=== PATIENT | female | born 1945 | race Caucasian/White ===

== ENCOUNTER 2021-02-18 03:08 | Emergency (ER) | payer MEDICARE, SELFPAY ==
[2021-02-18] VITALS (8 sets, daily range): BP systolic 128–160; BP diastolic 55–89; PULSE 83–104; RESP 16–25; TEMP 36.2; O2SAT 97–100
[2021-02-18 04:00] LABS: Basophils Percent Auto 0.2 % (0.2-1.2); Eosinophils Percent Auto 0.1 % (0-4.4); Hematocrit 31.9 % (37.0-47.0); Hemoglobin 8.1 g/dL (12.0-15.0); Immature Granulocyte Absolute 0.11 K/mm3 (0.00-0.031); Immature Granulocyte Percent A 0.6 % (0-0.5); Immature Platelet Fraction Pct 10.3 % (0.9-11.2); Lymphocytes Absolute Auto 0.98 K/mm3 (0.9-3.2); Lymphocytes Percent Auto 5.6 % (18.3-44.2); Mean Corpuscular HGB Conc 25.4 g/dl (32-36); Monocytes Absolute Auto 1.5 K/mm3 (0.1-0.6); Monocytes Percent Auto 8.3 % (2.6-8.5); Neutrophils Absolute Auto 14.9 K/mm3 (1.3-6.7); Neutrophils Percent Auto 85.2 % (45.5-73.1); Platelet Count Result 361 k/mm3 (150-375); Red Blood Count 5.06 M/mm3 (4.2-5.4); Red Cell Distribution Width 25.2 % (11.5-14.5); White Blood Count 17.5 K/mm3 (4.5-10.0)
[2021-02-18 04:09] LABS: Hypochromasia 1+ (NORMAL)
[2021-02-18 04:10] LABS: Platelet Estimate Adequate (Adequate)
[2021-02-18 04:11] LABS: Alanine Aminotransferase 17 U/L (4-35); Albumin Level 3.7 g/dL (3.5-5.1); Alkaline Phosphatase 79 U/L (38-126); Anion Gap 13 mmol/L (8-16); Aspartate Amino Transferase 32 U/L (14-36); Bilirubin,Total 0.6 mg/dL (0.2-1.3); Blood Urea Nitrogen 37 mg/dL (7-17); Calcium 7.4 mg/dL (8.4-10.2); Carbon Dioxide 21 mmol/L (22-30); Chloride 96 mmol/L (98-107); Estimated CRCL calculation 24 ml/min; Estimated Glomerular Filt Rate 28; Glucose 153 mg/dL (65-110); Lipase 172 U/L (23-300); Sodium 130 mmol/L (137-145)
--- NOTE | 2021-02-18 04:29 | ED.GENADULT ---
HPI - General Adult General Chief complaint: Unspecified Stated complaint: diarrhea Time Seen by Provider: 02/18/21 03:49 Source: RN notes reviewed History of Present Illness HPI narrative: Patient presents emergency department from home for multiple complaints. Patient states that today her left foot began to become cold and painful she states got to the point she could not walk on it and came in for further evaluation patient also states she is had diarrhea for the past 4 days states she is been having numerous episodes of loose stool she denies having fevers or chills, chest pain shortness of breath abdominal pain nausea vomiting or any other symptoms states that she is on any blood thinners. She states that she does have several family nerves at home who have been Covid positive approximately a week and a half ago she denies having any cough Related Data Allergies Allergy/AdvReac Type Severity Reaction Status Date / Time No Known Allergies Allergy Unverified 07/27/12 12:47 Review of Systems Review of Systems: Gen.: Denies fevers or chills ENT: Denies congestion Respiratory: Denies shortness of breath or cough CV: Denies chest pain or palpitations GI: Denies abdominal pain nausea, emesis reports diarrhea Musculoskeletal: Reports left foot pain Neuro: Denies numbness, tingling, weakness or focal weakness Skin: Denies rash Except as documented, all other systems reviewed and negative [facility] Past Medical History Medical History (Updated 02/18/21 @ 07:20 by Sanket Ocampo DO) COPD (chronic obstructive pulmonary disease) Social History Social History (Updated 02/18/21 @ 04:30 by Sanket Ocampo DO) Smoking status: Never smoker Exam Narrative: APPEARANCE: No acute distress, nontoxic, resting in bed EYES: EOMI HEENT: Normocephalic, atraumatic, OMM RESPIRATORY: No respiratory distress Clear to auscultation bilaterally with no rhonchi wheezing or rales. CARDIOVASCULAR: Regular rate and rhythm without murmurs rubs or gallops. ABDOMINAL: Soft, nontender, nondistended, no rebound or guarding MUSCULOSKELETAl: Moves all extremities. The left foot is pale and cool to the touch up to the mid tibia no dorsalis pedis pulse is able to be palpated and with Doppler unable to Doppler pulse dorsalis pedis or posterior tibialis NEURO: Awake and alert. Following commands, speech normal, no focal deficits SKIN:: Warm, dry. No rashes lesions or abrasions PSYCHIATRIC: Normal affect/mood, Course Course Emergency Course: Patient states she had been around some family members are diagnosed with Covid 2 weeks ago patient had rapid Covid swab negative in ED Discussed with patient need for transfer request [facility] this time Called discussed with [facility] no beds available [place] but beds are available at [facility]. Called discussed with Dr. Irene [facility] who accepts transfer the patient agrees with plan for starting heparin drip After transferring agreement at this time Vital Signs Vital signs: Vital Signs Temperature 97.1 F L 02/18/21 03:12 Pulse Rate 104 H 02/18/21 03:12 Respiratory Rate 16 02/18/21 03:12 Blood Pressure 128/65 02/18/21 03:12 Pulse Oximetry 99 02/18/21 03:12 Temperature 97.1 F L 02/18/21 03:12 Pulse Rate 89 02/18/21 07:14 Respiratory Rate 18 02/18/21 07:13 Blood Pressure 129/89 02/18/21 07:13 Pulse Oximetry 97 02/18/21 07:13 Medical Decision Making MDM Narrative Medical decision making narrative: Patient presents with a cool left foot unable to Doppler pulses in the dorsalis pedis or posterior tibialis. The patient has elevation of her creatinine and secondary is cannot receive contrast for CTA called and discussed with [facility] as we have no vascular surgery they will the patient at [facility] start on heparin with vascular surgery evaluation Vital Signs Vital Signs: Vital Signs Temperature 97.1 F L 02/18/21 03:12 Puls
[2021-02-18 04:35] LABS: Magnesium 1.5 mg/dL (1.6-2.3)
[2021-02-18 04:39] LABS: INR 1.1; Prothrombin Time 14.3 Seconds (11.1-14.7)
[2021-02-18] MEDS: MORPHINE SULFATE (*CRX) 2 MG/ML INJ IV PUSH ×3 (04:42→06:54)
--- NOTE | 2021-02-18 04:43 | PC.NURSE ---
pt still not able to urinate at this time.
[2021-02-18 04:49] LABS: EDCOVIDSCREEN Negative (Negative)
[2021-02-18] MEDS: HEPARIN SODIUM 5,000 UNITS/ML VIAL 6000 UNITS IV PUSH (04:56)
[2021-02-18] MEDS: MAGNESIUM SULF 2 GM/WATER 50ML 2 GM/50 ML BAG IVPB (04:56)
[2021-02-18 05:15] LABS: Lactic Acid Reflex 2.1 mmol/L (0.7-2.1)
[2021-02-18] MEDS: HEPARIN SOD/D5W 100 UNITS/ML 25,000 UNITS/250 ML BAG 12 UNITS IV CONT (05:15)
--- NOTE | 2021-02-18 05:37 | PC.NURSE ---
Called [facility] to transport patient to [facility] (direct admit)...ETA [phone]
--- NOTE | 2021-02-18 06:18 | PC.NURSE ---
pt still states she isnt able to urinate. notified.
--- NOTE | 2021-02-18 06:54 | PC.NURSE ---
0632: [facility] called with updated ETA...approximately 0800
[2021-02-18 07:04] LABS: Add Urine Microscopic? YES; Appearance Urine Cloudy (Clear); Bacteria Urine 4+ /hpf; Bilirubin Urine Negative (Negative); Blood Urine Negative (Negative); Color Urine Amber (Yellow); Glucose Urine UA Negative (Negative); Hyaline Casts Urine 50+ /lpf; Ketones Urine Negative (Negative); Leukocyte Esterase Ur 1+ LEU/UL (Negative); Mucus Urine Few /lpf; Nitrate Urine Negative (Negative); Protein Urine 1+ mg/dL (Negative); Specific Grav Ur 1.021 (1.001-1.035); Squamous Epithelial Cell Urine Moderate /hpf (Few); Urobilinogen Urine Negative mg/dL (<2.0); WBC Urine 21-30 /hpf
[2021-02-18 07:51] LABS: Reflex Lactic Acid Yes or No Add Lactic
--- NOTE | 2021-03-06 07:46 | PC.NURSE ---
LATE ENTRY This note is being entered to document information to the patient's record. The following information was omitted on [02/18/21], by [Millie Celaya]. IV fluids were infusing upon discharge to another facility.
--- NOTE | 2021-03-07 08:45 | PC.NURSE ---
LATE ENTRY This note is being entered to document information to the patient's record. The following information was omitted on [02/18/21], by [Millie Rao RN. Patient was transferred to [facility] with heparin drip continued. KCL stop time is 0842am. ].
== END 2021-02-18 08:17 | disposition short-term general hospital (02) ==
PROVIDERS: Emergency Provider Emergency Medicine
DX: I99.8 Other disorder of circulatory system (principal); N28.9 Disorder of kidney and ureter, unspecified; E87.6 Hypokalemia; R19.7 Diarrhea, unspecified; A41.9 Sepsis, unspecified organism; Z20.822 Contact with and (suspected) exposure to COVID-19; J44.9 Chronic obstructive pulmonary disease, unspecified; N39.0 Urinary tract infection, site not specified
CPT/HCPCS: 36415; 51701; 80053; 81001; 83605; 83690; 83735; 85025; 85055; 85610; 85730; 87040; 87077; 87086; 87088; 87186; 87426; 96365; 96366; 96367; 96368; 96375; 96376; 99285; C9803; J0696; J1644; J2270; J3475; J3480

== ENCOUNTER 2022-02-26 18:40 | Inpatient (IN) | payer OTHER, SELFPAY ==
[2022-02-26] VITALS (18 sets, daily range): BP systolic 103–149; BP diastolic 43–78; PULSE 94–101; RESP 13–19; TEMP 36.4–37.2; O2SAT 95–100
--- NOTE | ~2022-02-26 | CT_ITS ---
EXAMINATION: CT abdomen pelvis w con DATE: 02/26/2022 22:26 INDICATION: rule out gi bleed TECHNIQUE: Computed tomography (CT) of the abdomen and pelvis was performed with 100 mL Omnipaque-350 intravenous contrast. Automated exposure control and iterative reconstruction technique were employe d. The dose-length product was 1046.32 mGy-cm. COMPARISON: None. FINDINGS: Exam limited by motion and beam hardening artifact from arm position. Lower thorax: Peripheral and basilar interstitial lung disease. Bibasilar atelectasis. Aortic valve, coronary artery, and mitral calcifications. Cardiomegaly. Small pericardial effusion. Large hiatal he rnia. Liver: Enlarged. Biliary/Gallbladder: Gallbladder is normal. No bile duct dilation. Pancreas: No mass or duct dilation. Spleen: Normal. Adrenals:No mass. Kidneys: No mass, stone, or hydronephrosis. GI tract: Mild distal esophageal and gastric wall edema. No small bowel dilation. The rectum is dilat ed to 7.2 cm by formed stool. Normal appendix. Diverticulosis without diverticulitis. Mesentery/Peritoneum: No ascites, mass, or free air. Retroperitoneum: No mass. Very small fusiform abdominal aortic aneurysm. Atherosclerotic abdominal ao rtic and/or arterial calcifications. Pelvis: Bladder wall thickening and mild inflammation. Soft Tissues: Mild edema of the trunk. Bones: No acute osseous finding. IMPRESSION: Small pericardial effusion. Esophagitis/gastritis. Hepatomegaly. Fecal impaction. Possible cystitis. Reviewed, dictated and finalized at location K. IMPRESSION: Small pericardial effusion. Esophagitis/gastritis. Hepatomegaly. Fecal impactio n. Possible cystitis.
--- NOTE | ~2022-02-26 | XR_ITS ---
EXAMINATION: XR small bowel follow through DATE: 03/04/2022 14:00 INDICATION: Iron deficiency anemia. TECHNIQUE: Oral contrast was administered, and a time course of radiographs of the abdomen was obtain ed. Fluoroscopy of the small bowel was performed. Fluoroscopy exposure time was 0.1 minutes. The tota l number of images was 16. COMPARISON: CT abdomen and pelvis 02/26/2022 FINDINGS: There are no dilated loops of bowel. There is no abnormal mass or stricture. The terminal ileum is no rmal. Transit time from the stomach to proximal colon was approximately 5 hours. There is a moderate- sized sliding hiatal hernia. IMPRESSION: 1. No etiology for anemia. 2. Moderate-sized sliding hiatal hernia. Reviewed, dictated and finalized at location A.
--- NOTE | ~2022-02-26 | XR_ITS ---
EXAMINATION: XR chest 2V DATE: 02/27/2022 14:36 INDICATION: Congestive heart failure TECHNIQUE: AP and lateral views of the chest are obtained. COMPARISON: 12/20/2013 FINDINGS: Cardiomegaly is noted. There is a mild diffuse interstitial pattern. There are small pleura l effusions. There are minimal airspace opacities of the lung bases. No pneumothorax is identified. T here is mild thoracic spondylosis. IMPRESSION: 1. Cardiomegaly with mild pulmonary edema. 2. Small pleural effusions. 3. Minimal airspace opacities of the lung bases, likely atelectasis. Reviewed, dictated and finalized at location B.
--- NOTE | 2022-02-26 18:45 | ED.MEDCLEAR ---
HPI - Medical Clearance General Chief complaint: Recheck/Abnormal Lab/Rx Stated complaint: low H&H Time Seen by Provider: 02/26/22 18:45 Source: patient Mode of arrival: EMS Limitations: no limitations History of Present Illness HPI Narrative: The patient is a 76-year-old female presenting to the emergency department for evaluation of low hemoglobin and hematocrit found at outpatient laboratory testing. Patient states she was recently placed on a diuretic for bilateral lower extremity edema. Patient has been wrapping her legs with Rod bandages. 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 Patient states that she feels well. She denies any significant lightheadedness, dizziness, chest pain, shortness of breath, cough. She denies any significant fatigue, palpitations. Patient states that she was told that her hemoglobin levels were low and needed to come to the emergency department was transported via ambulance. Patient family is at bedside. States that she does appear pale to them. Patient does have a history of mild anemia. Does not have a history requiring blood transfusion. Related Information Allergies Allergy/AdvReac Type Severity Reaction Status Date / Time No Known Allergies Allergy Unverified 07/27/12 12:47 Review of Systems Review of Systems: CONSTITUTIONAL: Denies fever, chills, or sweats. EYES: Denies visual changes, redness, or discharge. ENT: Denies rhinorrhea, congestion, sore throat, or otalgia. CARDIOVASCULAR: Denies chest pain, palpitations, or edema. RESPIRATORY: Denies cough or dyspnea. GASTROINTESTINAL: Denies abdominal pain, nausea, vomiting, or diarrhea. GENITOURINARY: Denies dysuria or hematuria. SKIN: Denies rash or itching. MUSCULOSKELETAL: Denies back pain, joint pain, or myalgia. NEUROLOGIC: Denies headache, numbness, or weakness. P PMF Past Medical History Medical History (Updated 02/26/22 @ 21:37 by Sylvie Kennedy MD) Amputation of left lower extremity below knee Below knee amputation Chronic anticoagulation COPD (chronic obstructive pulmonary disease) Social History Social History Smoking status: Never smoker Exam Narrative: GENERAL: Awake, alert, conversant HEAD: Normocephalic, atraumatic. EYES: PERRLA and EOMI. ENT: Nares clear, no rhinorrhea or epistaxis. Mucous membranes dry NECK: Supple. CHEST: No respiratory distress, breathing even and non labored HEART: Tachycardic rate, sinus rhythm ABDOMEN:Non distended, non tender EXTREMITIES: Normal range of motion. Left BKA. Bilateral lower extremity pitting edema, 2+ pitting edema to the right lower leg, to the level of the knee. SKIN: Pale, warm, dry, no rash. NEURO:No focal deficits. Alert and oriented x3 Course Vital Signs Vital signs: Vital Signs Temperature 36.4 C 02/26/22 18:57 Pulse Rate 101 H 02/26/22 18:57 Respiratory Rate 18 02/26/22 18:57 Blood Pressure 149/61 H 02/26/22 18:57 Pulse Oximetry 96 02/26/22 18:57 Temperature 37.1 C 02/26/22 22:07 Pulse Rate 97 02/26/22 22:07 Respiratory Rate 19 02/26/22 22:07 Blood Pressure 106/43 L 02/26/22 22:07 Pulse Oximetry 100 02/26/22 22:07 MDM - Medical Clearance MDM Narrative Medical decision making narrative: Patient is a 76-year-old female presenting for evaluation of low hemoglobin levels found on outpatient evaluation. At the time of assessment, ABCs are intact and vital signs are stable. Patient is mildly tachycardic. Patient denies any other symptoms such as lightheadedness, dizziness, shortness of breath, fatigue. IV access obtained and labs are drawn. Type and screen was obtained. Patient significant anemia was verified. Hemoglobin levels of 3.0 and 2.8. Patient was ordered for IV blood transfusion. I perfor
--- NOTE | 2022-02-26 18:57 | ECG_ITS ---
Measurements Intervals [place] Rate: 102 P: 47 OK: 120 QRS: 35 QRSD: 97 T: 39 QT: 352 QTc: 459 Interpretive Statements SINUS TACHYCARDIA POSSIBLE LEFT ATRIAL ENLARGEMENT BASELINE ARTIFACT- I, II, AVR, AVL, AVF BORDERLINE ECG NO PREVIOUS ECG AVAILABLE FOR COMPARISON Electronically Signed On 02-26-2022 21:35:08 CDT by Luis F Rosas D.O.
[2022-02-26 19:36] LABS: INR 1.8
[2022-02-26 19:37] LABS: Partial Thromboplastin Time 40.5 SECONDS (22.3-36.8)
[2022-02-26 19:39] LABS: Basophils Percent Auto 0.4 % (0.2-1.2); Eosinophils Absolute Auto 0.1 K/mm3 (0-0.3); Eosinophils Percent Auto 1.6 % (0-4.4); Immature Granulocyte Absolute 0.03 K/mm3 (0.00-0.031); Immature Granulocyte Percent A 0.4 % (0-0.5); Lymphocytes Absolute Auto 1.93 K/mm3 (0.9-3.2); Lymphocytes Percent Auto 22.5 % (18.3-44.2); Mean Corpuscular HGB Conc 22.8 g/dl (32-36); Mean Corpuscular Hemoglobin 14.1 pg (26-34); Mean Corpuscular Volume 61.8 fl (80-100); Mean Platelet Volume 10.6 fl (7.4-10.4); Monocytes Absolute Auto 1.1 K/mm3 (0.1-0.6); Monocytes Percent Auto 13.3 % (2.6-8.5); Neutrophils Absolute Auto 5.3 K/mm3 (1.3-6.7); Neutrophils Percent Auto 61.8 % (45.5-73.1); Nucleated Red Blood Cells Absolute Auto 0.1 K/mm3 (0.0-0.012); Nucleated Red Blood Cells Perc 1.1 % (0.0-0.2); Platelet Count Result 737 k/mm3 (150-375); Red Cell Distribution Width 21.5 % (11.5-14.5); White Blood Count 8.6 K/mm3 (4.5-10.0)
[2022-02-26 19:44] LABS: Alanine Aminotransferase 17 U/L (6-35); Albumin Level 3.7 g/dL (3.5-5.1); Alkaline Phosphatase 125 U/L (38-126); Anion Gap 13 mmol/L (8-16); Aspartate Amino Transferase 23 U/L (14-36); Bilirubin,Total 0.7 mg/dL (0.2-1.3); Blood Urea Nitrogen 13 mg/dL (7-17); Carbon Dioxide 26 mmol/L (22-30); Chloride 96 mmol/L (98-107); Estimated CRCL calculation 54 ml/min; Estimated Glomerular Filt Rate > 60; Glucose 115 mg/dL (65-110); Lactate Dehydrogenase 169 U/L (120-246); Potassium 3.3 mmol/L (3.4-5.0); Sodium 135 mmol/L (137-145)
[2022-02-26 19:51] LABS: Hematocrit 13.6 % (37.0-47.0); Hemoglobin 3.1 g/dL (12.0-15.0)
[2022-02-26 19:52] LABS: Platelet Estimate Increased (Adequate)
[2022-02-26 19:53] LABS: Anisocytosis 3+ (NORMAL); Hypochromasia 3+ (NORMAL)
[2022-02-26 19:54] LABS: Iron 12 ug/dL (37-170)
[2022-02-26 20:03] LABS: Percent Iron Saturation 3 % (20-50)
[2022-02-26 20:18] LABS: Mean Corpuscular HGB Conc 22.8 g/dl (32-36); Mean Corpuscular Hemoglobin 14.2 pg (26-34); Mean Corpuscular Volume 62.4 fl (80-100); Mean Platelet Volume 10.1 fl (7.4-10.4); Platelet Count Result 627 k/mm3 (150-375); Red Blood Count 1.97 M/mm3 (4.2-5.4); Red Cell Distribution Width 21.3 % (11.5-14.5)
[2022-02-26 20:34] LABS: Hemoglobin 2.8 g/dL (12.0-15.0)
[2022-02-26 20:35] LABS: Hematocrit 12.3 % (37.0-47.0)
[2022-02-26 20:49] LABS: Anisocytosis 3+ (NORMAL); Band Neutrophils Percent 3 % (0-6); Eosinophils Absolute Manual 0.08 K/mm3 (0.02-0.5); Eosinophils Percent Manual 1 % (0-4); Giant Platelets Present; Large Platelets Present; Lymphocytes Absolute Manual 1.92 K/mm3 (1.1-4.5); Macrocytosis 2+ (NORMAL); Microcytosis 3+ (NORMAL); Monocytes Absolute Manual 0.64 K/mm3 (0.1-0.90); Monocytes Percent Manual 8 % (3-9); Neutrophils Absolute Manual 5.36 K/mm3 (1.7-7.2); Neutrophils Percent Manual 64 % (46-73); Platelet Estimate Increased (Adequate); Total Cells Counted 100
[2022-02-26 20:50] LABS: Acanthocytes 1+ (NORMAL); Hypersegmented Neutrophils Present; Hypochromasia 3+ (NORMAL); Ovalocytes 1+ (NORMAL); Stomatocytes 1+ (NORMAL); Target Cells 1+ (NORMAL)
[2022-02-26 20:51] LABS: Howell Jolly Bodies 2+ (NORMAL)
[2022-02-26 20:52] LABS: Poikilocytosis 1+ (NORMAL)
[2022-02-26] MEDS: SODIUM CHLORIDE 0.9% IV 250 ML 30 ML IV CONT (20:53)
[2022-02-26] MEDS: TUBING, BLOOD PLUM PUMP TUBING 1 EACH XX (20:54)
--- NOTE | 2022-02-26 20:58 | PM.IMHP ---
H&P: HPI History of Present Illness Date/Time: 02/26/22 20:58 Chief Complaint: 76 years old female with past medical history of chronic anticoagulation recurrent thrombosis status post COVID-19 status post left below-knee amputation for recurrent thrombosis history of COPD presented to the hospital with abnormal labs low hemoglobin patient was found to have hemoglobin around 3 repeat hemoglobin around2.8 patient denies black stool rectal exam did not show blood GI was consulted iron study haptoglobin was ordered patient denies chest pain or fever patient has lower extremity swelling was started on diuretics recently patient will be given blood transfusion will start IV Protonix GI and heme Onc will be consulted Patient has history hemorrhoids but denies black stool or blood in the stool or vomiting blood patient stated that she has blood test 1 week ago and she was told that no significant issues with her blood numbers Review of Systems Review of Systems: 12 system review negative except above PMFSH Past Medical History Medical History (Updated 02/26/22 @ 21:37 by Sylvie Kennedy MD) Amputation of left lower extremity below knee Below knee amputation Chronic anticoagulation COPD (chronic obstructive pulmonary disease) Social History Social History Smoking status: Never smoker Meds Home Medications and Allergies Allergies Allergy/AdvReac Type Severity Reaction Status Date / Time No Known Allergies Allergy Unverified 07/27/12 12:47 Vital Signs Vital Signs - 24 hr 02/26/22 18:57 02/26/22 20:51 Temperature 97.6 F 99.0 F Pulse Rate 101 H 98 Respiratory Rate 18 15 Blood Pressure 149/61 H 103/78 Pulse Oximetry 96 100 Exam Narrative: GENERAL: Well appearing, well-nourished, non-toxic, in no acute distress. HEAD: Normocephalic, atraumatic. NECK: Supple. No adenopathy, no masses. RESPIRATORY: Airway patent, respirations nonlabored. Clear to auscultation bilaterally, no rales, rhonchi, wheezing. CARDIOVASCULAR: Regular rate and rhythm without murmurs, rubs, or gallops. Peripheral pulses 2+ and equal bilaterally. ABDOMINAL: Soft, nontender, nondistended, no hepatosplenomegaly. Normoactive BS. MUSCULOSKELETAL: Moves all extremities. Strength/ROM intact without gross deformities or TTP. No edema. No calf tenderness. No chest wall tenderness palpation. SKIN: Warm, dry, normal color. No rashes. NEURO: A&O X3. moves all extremity. PSYCHIATRIC: Appropriate mood and affect. Normal interaction. H&P: Results Labs Labs: Short CBC 02/26/22 02/26/22 Range/Units 19:18 20:11 WBC 8.6 8.0 (4.5-10.0) K/mm3 Hgb 3.1 L* D 2.8 L* (12.0-15.0) g/dL Hct 13.6 L* 12.3 L* (37.0-47.0) % Plt Count 737 H D 627 H (150-375) k/mm3 BMP 02/26/22 19:17 Sodium 135 L Potassium 3.3 L Chloride 96 L Carbon Dioxide 26 BUN 13 D Creatinine 0.80 Glucose 115 H Calcium 9.0 Liver Function 02/26/22 Range/Units 19:17 Total Bilirubin 0.7 (0.2-1.3) mg/dL AST 23 (14-36) U/L ALT 17 (6-35) U/L Alkaline Phosphatase 125 (38-126) U/L Albumin 3.7 (3.5-5.1) g/dL Assessment and Plan Assessment and plan (1) Symptomatic anemia: Code(s): D64.9 - Anemia, unspecified Status: Acute Assessment and Plan: rule out acute blood loss anemia rule out hemolytic anemia Heme-Onc consult iron study occult blood folic acid B12 haptoglobin transfuse to keep hemoglobin above 7 discussed with ER provider CT scan of the abdomen pending (2) Blood clot in vein: Code(s): I82.90 - Acute embolism and thrombosis of unspecified vein Status: Acute Assessment and Plan: status post below-knee amputation (3) COPD (chronic obstructive pulmonary disease): Code(s): J44.9 - Chronic obstructive pulmonary disease, unspecified Status: Acute Assessment and Plan: stable continue
[2022-02-26 21:15] LABS: NT Pro B Type Natriuretic Pept 2490 pg/mL (5-100)
[2022-02-26 21:43] LABS: Ferritin 3.84 ng/mL (11.1-264)
[2022-02-26 22:01] LABS: Hematocrit 13.1 % (37.0-47.0)
[2022-02-26] MEDS: POTASSIUM CHLORIDE INJ 40 MEQ in SODIUM CHLORIDE 0.9% IV 500 ML 130 MEQ IVPB (22:28)
[2022-02-27] VITALS (36 sets, daily range): BP systolic 118–141; BP diastolic 46–102; PULSE 80–98; RESP 15–23; TEMP 36.6–37.2; O2SAT 94–100
[2022-02-27 00:20] LABS: Folic Acid 10.1 ng/mL (2.76->20)
--- NOTE | 2022-02-27 00:40 | ADMIMU ---
This patient, Shruthi Norris, was admitted to IMU status, and placed in Intensive Care Unit-8. Patient/family oriented to hospital policies and general routines including ID bracelet, bed and alarms, visiting hours, pain management, procedures, bathroom and other care routines, personal items, smoking policy, room service/diet, and visiting hours. Valuables list has been completed. Information on how to activate the Rapid Response Team has been discussed. Patient/Family are encouraged to report perceived risks to care and to ask questions if they do not understand what they are told or what they should do.
[2022-02-27 01:48] LABS: IFOB Positive Control Positive; Immunochemical Fecal Occult Bl Positive (N)
[2022-02-27] MEDS: IPRATROPIUM BR 0.02% INH SOLN 0.5 MG/2.5 ML VIAL INHALATION ×4 (02:32→21:41)
[2022-02-27 05:53] LABS: Basophils Absolute Auto 0.1 K/mm3 (0.0-0.1); Eosinophils Absolute Auto 0.1 K/mm3 (0-0.3); Eosinophils Percent Auto 1.9 % (0-4.4); Immature Granulocyte Absolute 0.03 K/mm3 (0.00-0.031); Immature Granulocyte Percent A 0.4 % (0-0.5); Lymphocytes Absolute Auto 1.01 K/mm3 (0.9-3.2); Lymphocytes Percent Auto 14.4 % (18.3-44.2); Mean Corpuscular HGB Conc 26.8 g/dl (32-36); Mean Corpuscular Hemoglobin 18.8 pg (26-34); Mean Platelet Volume 10.5 fl (7.4-10.4); Monocytes Absolute Auto 1.3 K/mm3 (0.1-0.6); Monocytes Percent Auto 17.9 % (2.6-8.5); Neutrophils Absolute Auto 4.5 K/mm3 (1.3-6.7); Neutrophils Percent Auto 64.4 % (45.5-73.1); Nucleated Red Blood Cells Absolute Auto 0.1 K/mm3 (0.0-0.012); Nucleated Red Blood Cells Perc 1.4 % (0.0-0.2); Platelet Count Result 558 k/mm3 (150-375); Red Blood Count 2.77 M/mm3 (4.2-5.4); Red Cell Distribution Width 24.6 % (11.5-14.5)
[2022-02-27 05:56] LABS: Alanine Aminotransferase 16 U/L (6-35); Albumin Level 3.1 g/dL (3.5-5.1); Alkaline Phosphatase 112 U/L (38-126); Anion Gap 8 mmol/L (8-16); Aspartate Amino Transferase 21 U/L (14-36); Bilirubin,Total 1.2 mg/dL (0.2-1.3); Blood Urea Nitrogen 11 mg/dL (7-17); Calcium 8.5 mg/dL (8.4-10.2); Carbon Dioxide 24 mmol/L (22-30); Chloride 100 mmol/L (98-107); Estimated CRCL calculation 62 ml/min; Estimated Glomerular Filt Rate > 60; Glucose 116 mg/dL (65-110); Potassium 3.9 mmol/L (3.4-5.0); Sodium 132 mmol/L (137-145)
[2022-02-27 05:58] LABS: Magnesium 1.9 mg/dL (1.6-2.3)
[2022-02-27 07:38] LABS: Hemoglobin 5.2 g/dL (12.0-15.0)
[2022-02-27 07:39] LABS: Hematocrit 19.4 % (37.0-47.0)
[2022-02-27 07:41] LABS: Anisocytosis 3+ (NORMAL); Hypochromasia 3+ (NORMAL); Microcytosis 2+ (NORMAL); Platelet Estimate Increased (Adequate)
--- NOTE | 2022-02-27 07:41 | PM.IMPN ---
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 Status: Acute Assessment and Plan: Holding Eliquis for now (3) Amputation of left lower extremity below knee: Code(s): S88.112A - Complete traumatic amputation at level between knee and ankle, left lower leg, initial encounter Status: Acute (4) COPD (chronic obstructive pulmonary disease): Code(s): J44.9 - Chronic obstructive pulmonary disease, unspecified Status: Acute Assessment and Plan: Stable (5) UTI (urinary tract infection): Code(s): N39.0 - Urinary tract infection, site not specified Status: Acute Assessment and Plan: Start on Rocephin, follow up urine culture (6) Chronic heart failure: Code(s): I50.9 - Heart failure, unspecified Status: Acute Assessment and Plan: Appears stable for now, monitor closely with large volume of transfusions being given, may need Lasix (7) Fecal impaction: Code(s): K56.41 - Fecal impaction Status: Acute Assessment and Plan: Give enema, hold off on further bowel regimen until hemoglobin stable Plan DVT prophylaxis with SCDs GI prophylaxis with PPI Code status full code Subjective Date/time seen: 02/27/22 07:41 Interval history: Patient sitting up in bed, resting comfortably. No complaints. No overnight events noted. No chest pain or shortness of breath. No nausea, vomiting or diarrhea. No fevers or chills. Review of Systems Review of Systems: 12 point review of systems was assessed and was negative except as noted in the HPI Objective Data Vital Signs Vital Signs: Vital Signs - 24 hr 02/26/22 18:57 02/26/22 20:51 02/26/22 21:07 Temperature 97.6 F 99.0 F 99.0 F Pulse Rate 101 H 98 94 Respiratory Rate 18 15 19 Blood Pressure 149/61 H 103/78 120/59 L Pulse Oximetry 96 100 99 Oxygen Delivery 02/26/22 20:45 02/26/22 20:46 02/26/22 21:02 Temperature Pulse Rate 99 100 96 Respiratory Rate 13 18 19 Blood Pressure 103/78 Pulse Oximetry 100 98 99 Oxygen Delivery 02/26/22 21:06 02/26/22 21:15 02/26/22 21:16 Temperature Pulse Rate 98 97 98 Respiratory Rate 19 19 19 Blood Pressure 120/59 L 120/56 L Pulse Oximetry 98 97 96 Oxygen Delivery 02/26/22 21:30 02/26/22 21:31 02/26/22 22:07 Temperature 98.8 F Pulse Rate 97 98 97 Respiratory Rate 16 19 19 Blood Pressure 118/48 L 106/43 L Pulse Oximetry 96 95 100 Oxygen Delivery 02/26/22 21:32 02/26/22 21:45 02/26/22 21:58 Temperature Pulse Rate 97 96 97 Respiratory Rate 18 17 18 Blood Pressure 106/64 Pulse Oximetry 96 97 96 Oxygen Delivery 02/26/22 22:00 02/26/22 22:01 02/26/22 22:27 Temperature Pulse Rate 95 97 94 Respiratory Rate 16 19 18 Blood Pressure 106/43 L 137/66 Pulse Oximetry 96 98 95 Oxygen Delivery 02/27/22 00:52 02/27/22 01:31 02/27/22 01:40 Temperature 98.6 F 98.6 F Pulse Rate 96 91 96 Respiratory Rate 15 20 17 Blood Pressure 131/79 141/65 H Pulse Oximetry 99 98 99 Oxygen Delivery Room Air 02/27/22 01:46 02/27/22 02:00 02/27/22 03:06 Temperature 98.8 F Pulse Rate 95 95 94 Respiratory Rate 20 23 H Blood Pressure 126/58 L Pulse Oximetry 97 96 Oxygen Delivery Room Air 02/27/22 02:46 02/27/22 02:32 02/27/22 02:42 Temperature 98.7 F Pulse Rate 94 98 90 Respiratory Rate 19 21 H 18 Blood Pressure 127/62 Pulse Oximetry 96 Oxygen Delivery 02/27/22 03:46 02/27/22 04:00 02/27/22 04:00 Temperature 98.7 F Pulse Rate 95 90 93 Respiratory Rate 19 Blood Pressure 138/102 H Pu
[2022-02-27 07:42] LABS: Ovalocytes 2+ (NORMAL); Target Cells 1+ (NORMAL); Tear Drop Cells 1+ (NORMAL)
[2022-02-27] MEDS: SODIUM CHLORIDE 0.9% IV 250 ML 30 ML IV CONT (07:55)
[2022-02-27] MEDS: oxyCODONE HCL (*CRX) 2.5 MG TAB IR PO ×2 (09:18→22:46)
[2022-02-27] MEDS: CALCIUM CARBONATE (TUMS) 500 MG (200 MG ELEMENTAL) 400 MG PO (09:18)
[2022-02-27] MEDS: PANTOPRAZOLE SODIUM IV 40 MG VIAL IV PUSH ×2 (09:18→17:41)
[2022-02-27] MEDS: THERAPEUTIC MULTIVITAMINS/MINERALS TAB (*BKC) 1 TABLET PO (09:19)
[2022-02-27] MEDS: ERGOCALCIFEROL 50,000 UNIT CAPSULE 50000 UNITS PO (09:19)
[2022-02-27] MEDS: FUROSEMIDE 20 MG TABLET PO (09:19)
--- NOTE | 2022-02-27 13:15 | WPDGICN ---
Assessment and Plan Assessment and plan (1) REED (iron deficiency anemia): Code(s): D50.9 - Iron deficiency anemia, unspecified Status: Acute Assessment and Plan: Patient appears to have a chronic anemia. she appears to have iron deficiency anemia. stool occult blood suggest that there is a potential GI source. Plan is for colonoscopy and EGD, but this should be deferred until her congestive heart failure is stabilized and her hemoglobin is improved she likely will need several transfusions. I would anticipate GI endoscopy early next week. (2) Occult blood in stools: Code(s): R19.5 - Other fecal abnormalities Status: Acute Assessment and Plan: No no active bleeding described but a stools found to be occult blood positive raising the question of GI source for anemia. (3) Acute exacerbation of CHF (congestive heart failure): Code(s): I50.9 - Heart failure, unspecified Status: Acute Assessment and Plan: Patient appears to have a high output congestive heart failure likely on the basis of her profound anemia. Hopefully this will improve with diuresis and correcting her anemia. 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 It was felt that she was hypercoagulable with her recent COVID infection. GI Consult Note Consult date/time: 02/27/22 13:15 Reason for consult: Microcytic anemia. HPI: Shruthi Norris is a 76 year old female I am asked to see because of anemia. Patient has a history of COVID in 2000. During this interval she developed clotting disorder. Then should really had clots in her left lower extremity which progressed to a left [id number] amputation. Patient subsequently was placed into a mcc. Because of DVT history she has been on chronic Eliquis anticoagulation. Patient has an underlying history of COPD, obesity, malleolar fracture. and tobacco use.. Patient reports that she began to develop pedal edema and swelling full with fluid retention. For this reason she presented to the emergency room last evening. She was noted to have a profound microcytic anemia and elevated BNP level. Subsequent iron studies are diminished. Patient denies any obvious bleeding. She has no nose bleeds. Previous laboratory testing reveals that in the past she had microcytic anemia but not to this degree. Review of Systems Review of Systems: Review of systems noncontributory. [facility] Past Medical History Medical History (Updated 02/27/22 @ 13:18 by Tristan Fernandez MD) Amputation of left lower extremity below knee Below knee amputation Chronic anticoagulation COPD (chronic obstructive pulmonary disease) Social History Social History Smoking status: Never smoker Alcohol intake: never Substance use: never Spiritual care concerns: No Meds Home Medications and Allergies Home Medications Medication Instructions Recorded Confirmed Type acetaminophen 500 mg tablet 500 mg PO Q8H PRN Pain 02/27/22 02/27/22 History apixaban 5 mg tablet (Eliquis) 5 mg PO BID 02/27/22 02/27/22 History aspirin 81 mg capsule,delayed 81 mg PO DAILY 02/27/22 02/27/22 History release calcium carbonate 200 mg calcium 400 mg PO DAILY 02/27/22 02/27/22 History (500 mg) chewable tablet (Vasquez-Gest Antacid) ergocalciferol (vitamin D2) 1,250 1,250 mcg PO WEEKLY 02/27/22 02/27/22 History mcg (50,000 unit) capsule fu
[2022-02-27 15:15] LABS: Hematocrit 26.8 % (37.0-47.0); Hemoglobin 8.3 g/dL (12.0-15.0)
[2022-02-27] MEDS: FUROSEMIDE INJ 40 MG/4 ML VIAL 20 MG IV PUSH (15:35)
--- NOTE | 2022-02-27 17:56 | PC.NURSE ---
This patient, Shruthi Norris, was transferred to [[id number]] on 02/27/22 at 1756. Personal belongings sent with patient. Report given to [Christofer ]. Appropriate documentation sent with patient.
--- NOTE | 2022-02-27 18:51 | PDONCCN ---
HPI - Date of Consult Date/Time: 02/27/22 18:51 Requesting Physician: Sylvie Kennedy MD Primary Care Provider: NUT TAPPER PHYSICIAN - Consult Narrative Reason for consult: Iron deficiency anemia Narrative: Shruthi Norris is a 76 year old female with the adverse still half-way resident had history of left BKA for recurrent thrombosis and peripheral vascular disease status post COVID infection came into the hospital when found to have hemoglobin of 3. Repeat labs done in the hospital showed hemoglobin of 2.8. Surprisingly she is not very symptomatic with tiredness and fatigue. She also denies any bleeding including melena hematochezia. Patient does have some swelling in the right lower extremity. CT abdomen and pelvis showed small pericardial effusion, esophagitis/gastritis and possible cystitis. After receiving 4 units of packed red blood cell her hemoglobin improved to 8.3. Review of Systems - Review of Systems All systems reviewed & are unremarkable except as noted in [facility] and [facility] Medical History: Medical History (Last Updated 02/26/22 @ 21:00 by Sylvie Kennedy MD) Amputation of left lower extremity below knee Below knee amputation Chronic anticoagulation COPD (chronic obstructive pulmonary disease) - Social History Social History: Social History (Last Reviewed 02/26/22 @ 20:59 by Sylvie Kennedy MD) Alcohol Use: Alcohol intake: never Substance Use: Substance use: never Others: Spiritual care concerns: No Smoking Status: Smoking status: Never smoker Exam - Vital Signs Vital Signs - 24 hr 02/26/22 18:57 02/26/22 20:51 02/26/22 21:07 Temperature 36.4 C 37.2 C 37.2 C Pulse Rate 101 H 98 94 Respiratory Rate 18 15 19 Blood Pressure 149/61 H 103/78 120/59 L Pulse Oximetry 96 100 99 Oxygen Delivery 02/26/22 20:45 02/26/22 20:46 02/26/22 21:02 Temperature Pulse Rate 99 100 96 Respiratory Rate 13 18 19 Blood Pressure 103/78 Pulse Oximetry 100 98 99 Oxygen Delivery 02/26/22 21:06 02/26/22 21:15 02/26/22 21:16 Temperature Pulse Rate 98 97 98 Respiratory Rate 19 19 19 Blood Pressure 120/59 L 120/56 L Pulse Oximetry 98 97 96 Oxygen Delivery 02/26/22 21:30 02/26/22 21:31 02/26/22 22:07 Temperature 37.1 C Pulse Rate 97 98 97 Respiratory Rate 16 19 19 Blood Pressure 118/48 L 106/43 L Pulse Oximetry 96 95 100 Oxygen Delivery 02/26/22 21:32 02/26/22 21:45 02/26/22 21:58 Temperature Pulse Rate 97 96 97 Respiratory Rate 18 17 18 Blood Pressure 106/64 Pulse Oximetry 96 97 96 Oxygen Delivery 02/26/22 22:00 02/26/22 22:01 02/26/22 22:27 Temperature Pulse Rate 95 97 94 Respiratory Rate 16 19 18 Blood Pressure 106/43 L 137/66 Pulse Oximetry 96 98 95 Oxygen Delivery 02/27/22 00:52 02/27/22 01:31 02/27/22 01:40 Temperature 37.0 C 37.0 C Pulse Rate 96 91 96 Respiratory Rate 15 20 17 Blood Pressure 131/79 141/65 H Pulse Oximetry 99 98 99 Oxygen Delivery Room Air 02/27/22 01:46 02/27/22 02:00 02/27/22 03:06 Temperature 37.1 C Pulse Rate 95 95 94 Respiratory Rate 20 23 H Blood Pressure 126/58 L Pulse Oximetry 97 96 Oxygen Delivery Room Air 02/27/22 02:46 02/27/22 02:32 02/27/22 02:42 Temperature 37.1 C Pulse Rate 94 98 90 Respiratory Rate 19 21 H 18 Blood Pressure 127/62 Pulse Oximetry 96 Oxygen Delivery 02/27/22 03:46 02/27/22 04:00 02/27/22 04:00 Temperature 37.1 C Pulse Rate 95 90 93 Respiratory Rate 19 Blood Pressure 138/102 H Pulse Oximetry 97 Oxygen Delivery 02/27/22 06:00 02/27/22 08:07 02/27/22 08:00 Temperature 36.9 C Pulse Rate 91 88 Respiratory Rate 22 H Blood Pressure 122/68 Pulse Oximetry 96 95 Oxygen Delivery Room Air 02/27/22 08:23 02/27/22 08:45 02/27/22 08:58 Temperature 37.2 C Pulse Rate 85 94 95 Respiratory Rate 15 20 18 Blood Pressure 123/62 Pulse Oximetry 10
[2022-02-27] MEDS: IRON SUCROSE COMPLEX 500 MG in SODIUM CHLORIDE 0.9% IV 250 ML 78.57 MG IVPB (22:36)
[2022-02-28] VITALS (15 sets, daily range): BP systolic 118–128; BP diastolic 66–73; PULSE 74–98; RESP 16–18; TEMP 36.3–36.6; O2SAT 92–95; BMI 31.7
--- NOTE | 2022-02-28 | ECHO_ITS ---
Patient Info Name: Shruthi Norris Age: 76 years : 1945 Gender: Female Ht: 66 in Wt: 196 lbs BSA: 2.06 m2 HR: 85 bpm BP: 127 / 73 mmHg Technical Quality: Fair Exam Date: 02/28/2022 11:51 AM Exam Location: [facility] [place] Patient Status: Inpatient Admit Date: 02/26/2022 Staff Ordering Physician: Carmelita Atwood DO Riffler Tender: Niharika Martinez RDCS Attending Provider: Sylvie Kennedy M.A., MD Referring Physician: Rai FRANCO; Exam Type: CA echo doppler color flow Study Info Indications R06.02 - Shortness of breath Complete two-dimensional, color flow and Doppler transthoracic echocardiogram is performed. Summary 1. Complete two-dimensional, color flow and Doppler transthoracic echocardiogram is performed. 2. Left ventricular chamber dimension is normal. 3. Left ventricular systolic function is normal, estimated at 55-60%. 4. The left ventricular diastolic function is grade I diastolic dysfunction. 5. E/e' 23 is elevated. 6. Global longitudinal strain is abnormal at -12.4%. 7. Left atrial chamber dimension is moderately enlarged. 8. There is mild aortic valve sclerosis. 9. The mitral valve has moderately calcified annulus. 10. There is mild mitral valve regurgitation. 11. Mild pulmonary hypertension, estimated pulmonary arterial systolic pressure is 42 mmHg. 12. There is small circumferential pericardial effusion. No pericardial effusion. Left Ventricle E/e' 23 is elevated. Global longitudinal strain is abnormal at -12.4%. Left ventricular chamber dimension is normal. Left ventricular systolic function is normal, estimated at 55-60%. The left ventricular diastolic function is grade I diastolic dysfunction. Right Ventricle Right ventricular chamber dimension is normal. Right ventricular systolic function is normal. Left Atria Left atrial chamber dimension is moderately enlarged. Right Atria Right atrial chamber dimension is normal. Aortic Valve The aortic valve is trileaflet. There is mild aortic valve sclerosis. There is no aortic valve stenosis. There is no aortic valve regurgitation. Pulmonic Valve There is no pulmonic regurgitation. Mitral Valve The mitral valve has moderately calcified annulus. There is no mitral valve stenosis. There is mild mitral valve regurgitation. Tricuspid Valve There is no tricuspid valve regurgitation. Mild pulmonary hypertension, estimated pulmonary arterial systolic pressure is 42 mmHg. Pericardium/Pleural There is small circumferential pericardial effusion. No pericardial effusion. Inferior Vena Cava Normal inferior vena cava with >50% collapse upon inspiration consistent with normal right atrial pressure, 5 mmHg. Aorta The aortic root size at the sinus of Valsalva is normal. Left Ventricular Outflow Tract Name Value Normal LVOT 2D LVOT Diameter 1.9 cm LVOT Doppler LVOT Peak Gradient 7 mmHg LVOT Mean Gradient 4 mmHg LVOT VTI 26 cm LVOT VTI/AV VTI Ratio 0.9 LVOT Stroke Volume
[2022-02-28 06:11] LABS: Basophils Percent Auto 0.5 % (0.2-1.2); Eosinophils Absolute Auto 0.6 K/mm3 (0-0.3); Hematocrit 29.7 % (37.0-47.0); Hemoglobin 8.5 g/dL (12.0-15.0); Immature Granulocyte Absolute 0.06 K/mm3 (0.00-0.031); Immature Granulocyte Percent A 0.8 % (0-0.5); Lymphocytes Absolute Auto 1.03 K/mm3 (0.9-3.2); Lymphocytes Percent Auto 14.1 % (18.3-44.2); Mean Corpuscular HGB Conc 28.6 g/dl (32-36); Mean Corpuscular Hemoglobin 21.6 pg (26-34); Mean Corpuscular Volume 75.6 fl (80-100); Mean Platelet Volume 10.3 fl (7.4-10.4); Monocytes Absolute Auto 1.1 K/mm3 (0.1-0.6); Monocytes Percent Auto 15.3 % (2.6-8.5); Neutrophils Absolute Auto 4.5 K/mm3 (1.3-6.7); Neutrophils Percent Auto 61.3 % (45.5-73.1); Nucleated Red Blood Cells Absolute Auto 0.1 K/mm3 (0.0-0.012); Nucleated Red Blood Cells Perc 1.5 % (0.0-0.2); Platelet Count Result 457 k/mm3 (150-375); Red Blood Count 3.93 M/mm3 (4.2-5.4); Red Cell Distribution Width 25.5 % (11.5-14.5); White Blood Count 7.3 K/mm3 (4.5-10.0)
[2022-02-28 06:22] LABS: Alanine Aminotransferase 15 U/L (6-35); Albumin Level 3.1 g/dL (3.5-5.1); Alkaline Phosphatase 99 U/L (38-126); Anion Gap 13 mmol/L (8-16); Aspartate Amino Transferase 19 U/L (14-36); Bilirubin,Total 0.7 mg/dL (0.2-1.3); Blood Urea Nitrogen 10 mg/dL (7-17); Calcium 7.9 mg/dL (8.4-10.2); Carbon Dioxide 25 mmol/L (22-30); Chloride 99 mmol/L (98-107); Estimated CRCL calculation 65 ml/min; Estimated Glomerular Filt Rate > 60; Glucose 101 mg/dL (65-110); Potassium 3.5 mmol/L (3.4-5.0); Sodium 137 mmol/L (137-145)
[2022-02-28 07:30] LABS: Platelet Estimate Increased (Adequate)
[2022-02-28 07:31] LABS: Anisocytosis 1+ (NORMAL); Hypochromasia 1+ (NORMAL); Macrocytosis 1+ (NORMAL); Poikilocytosis 1+ (NORMAL); Polychromasia 1+ (NORMAL)
[2022-02-28 07:32] LABS: Platelet Clumps Present
[2022-02-28] MEDS: TOLNAFTATE 1% POWDER 45 GM BTL 1 APPLIC TOPICAL ×2 (08:51→20:36)
[2022-02-28] MEDS: THERAPEUTIC MULTIVITAMINS/MINERALS TAB (*BKC) 1 TABLET PO (08:52)
[2022-02-28] MEDS: PANTOPRAZOLE SODIUM IV 40 MG VIAL IV PUSH ×2 (08:52→17:32)
[2022-02-28] MEDS: CALCIUM CARBONATE (TUMS) 500 MG (200 MG ELEMENTAL) 400 MG PO (08:52)
[2022-02-28] MEDS: FUROSEMIDE 20 MG TABLET PO (08:55)
[2022-02-28] MEDS: oxyCODONE HCL (*CRX) 2.5 MG TAB IR PO ×2 (09:01→20:36)
[2022-02-28] MEDS: polyethylene glycoL 3350 17 GM POWD.PACK PO (09:01)
--- NOTE | 2022-02-28 09:33 | PM.IMPN ---
Progress Note: A&P Assessment and Plan (1) GI bleed: Code(s): K92.2 - Gastrointestinal hemorrhage, unspecified Status: Acute Assessment and Plan: Fecal occult blood test positive, continue PPI, hgb stable after 4u pRBCs, monitor hemoglobin closely, gastritis and esophagitis noted on CT scan GI planning EGD/colonoscopy after HF and hgb stabilizes, likely on Thursday (2) Chronic anticoagulation: Code(s): Z79.01 - care home (current) use of anticoagulants Status: Acute Assessment and Plan: Holding Eliquis for now (3) Amputation of left lower extremity below knee: Code(s): S88.112A - Complete traumatic amputation at level between knee and ankle, left lower leg, initial encounter Status: Acute (4) COPD (chronic obstructive pulmonary disease): Code(s): J44.9 - Chronic obstructive pulmonary disease, unspecified Status: Acute Assessment and Plan: Stable (5) UTI (urinary tract infection): Code(s): N39.0 - Urinary tract infection, site not specified Status: Acute Assessment and Plan: Started on Rocephin in ER, follow up urine culture (6) Chronic heart failure: Code(s): I50.9 - Heart failure, unspecified Status: Acute Assessment and Plan: increase lasix IV, appears hypervolemic (7) Fecal impaction: Code(s): K56.41 - Fecal impaction Status: Acute Assessment and Plan: resolved Plan DVT prophylaxis with SCDs GI prophylaxis with PPI Code status full code Subjective Date/time seen: 02/28/22 09:33 Interval history: Patient sitting up in bed, watching TV, no complaints. No overnight events noted. No chest pain or shortness of breath. No nausea, vomiting or diarrhea. No fevers or chills. Review of Systems Review of Systems: 12 point review of systems was assessed and was negative except as noted in the HPI Exam Narrative: General: No acute distress, alert and oriented per baseline HEENT: Atraumatic, normocephalic, mucous membranes moist CV: Regular rate and rhythm, S1, S2 Lungs: Clear to auscultation bilaterally, no rales or crackles noted, no wheezes, good air entry Abdomen: Soft, nontender, nondistended Extremities: Normal to inspection Skin: No rashes noted, no lesions or wounds seen Psych: Euthymic, normal affect Objective Data Vital Signs Vital Signs: Vital Signs - 24 hr 02/27/22 10:23 02/27/22 10:00 02/27/22 11:00 Temperature 98.6 F 98.6 F Pulse Rate 93 90 85 Respiratory Rate 19 17 Blood Pressure 138/91 H 133/68 Pulse Oximetry 96 94 Oxygen Delivery 02/27/22 11:15 02/27/22 12:00 02/27/22 11:30 Temperature 98.6 F 98.9 F 98.6 F Pulse Rate 82 83 83 Respiratory Rate 20 16 17 Blood Pressure 133/78 130/63 136/64 Pulse Oximetry 95 97 95 Oxygen Delivery 02/27/22 12:30 02/27/22 12:00 02/27/22 12:00 Temperature 98.1 F Pulse Rate 83 80 Respiratory Rate 19 Blood Pressure 135/69 Pulse Oximetry 97 97 Oxygen Delivery Room Air 02/27/22 13:30 02/27/22 14:00 02/27/22 14:15 Temperature 98.1 F Pulse Rate 81 83 83 Respiratory Rate 18 20 Blood Pressure 118/87 Pulse Oximetry 98 Oxygen Delivery 02/27/22 14:26 02/27/22 14:26 02/27/22 16:00 Temperature Pulse Rate 85 88 Respiratory Rate 18 Blood Pressure Pulse Oximetry 96 Oxygen Delivery Room Air 02/27/22 16:00 02/27/22 18:46 02/27/22 20:00 Temperature 98.2 F 97.8 F Pulse Rate 93 91 Respiratory Rate 19 18 Blood Pressure 124/59 L 120/59 L Pulse Oximetry 97 98 Oxygen Delivery Room Air 02/27/22 21:42 02/27/22 21:44 02/27/22 22:44 Temperature 98.2 F Pulse Rate 88 90 Respiratory Rate 18 20 Blood Pressure 122/46 L Pulse Oximetry 95 98 Oxygen Delivery Room Air 02/27/22 20:00 02/28/22 02:45 02/27/22 21:54 Temperature Pulse Rate 89 76 87 Respiratory Rate 18 18 Blood Pressure Pulse Oximetry Oxygen Delivery 02/28/22 02:5
[2022-02-28] MEDS: IPRATROPIUM BR 0.02% INH SOLN 0.5 MG/2.5 ML VIAL INHALATION ×3 (09:53→20:07)
[2022-02-28] MEDS: FUROSEMIDE INJ 40 MG/4 ML VIAL IV PUSH ×2 (13:44→17:32)
--- NOTE | 2022-02-28 14:04 | WPDGIPROGNO ---
Progress Note: A&P Assessment and Plan (1) Occult blood in stools: Code(s): R19.5 - Other fecal abnormalities Status: Acute Assessment and Plan: she never had scopes no overt gib but noted occult blood in stools better after blood transfusion egd and colonoscopy by Dr Fernandez this Thursday (2) REED (iron deficiency anemia): Code(s): D50.9 - Iron deficiency anemia, unspecified Status: Acute Assessment and Plan: will need further investigation with egd and colonoscopy (3) Acute exacerbation of CHF (congestive heart failure): Code(s): I50.9 - Heart failure, unspecified Status: Acute Assessment and Plan: due to severe anemia (4) Abnormal CT scan, stomach: Code(s): R93.3 - Abnormal findings on diagnostic imaging of other parts of digestive tract Status: Acute Assessment and Plan: will assess with egd tolerating diet iv protonix for now (5) GI bleed: Code(s): K92.2 - Gastrointestinal hemorrhage, unspecified Status: Acute Assessment and Plan: iv protonix (6) Amputation of left lower extremity below knee: Code(s): S88.112A - Complete traumatic amputation at level between knee and ankle, left lower leg, initial encounter Status: Acute Subjective Date/time seen: 02/28/22 14:04 Interval history: doing well after blood transfusion, no abdominal pain, no n/v and tolerating diet. Denies obvious overt gib Review of Systems Review of Systems: All systems reviewed & are unremarkable except as noted in HPI and below Exam Const: General: comfortable and no acute distress HENMT: General nose exam: Normal nares present Eyes: General: appearance normal, both eyes and all related structures Neck: Neck: no JVD Resp: Auscultation: clear to auscultation bilaterally Cardio: Rate: regular rate Rhythm: regular rhythm GI: Inspection: non-distended GI Palp: Yes Soft to palpation, No Tenderness to palpation present (GI) and No Guarding due to palpation present (GI) Auscultation: normal bowel sounds Skin: General skin exam: normal color Neuro: Speech: normal speech Extrem: Other: left BKA Psych: Mental Status: mental status grossly normal Objective Data Vital Signs Vital Signs: Vital Signs - 24 hr 02/27/22 14:15 02/27/22 14:26 02/27/22 14:26 Temperature Pulse Rate 83 85 Respiratory Rate 20 18 Blood Pressure Pulse Oximetry 96 Oxygen Delivery Room Air 02/27/22 16:00 02/27/22 16:00 02/27/22 18:46 Temperature 98.2 F 97.8 F Pulse Rate 88 93 91 Respiratory Rate 19 18 Blood Pressure 124/59 L 120/59 L Pulse Oximetry 97 98 Oxygen Delivery 02/27/22 20:00 02/27/22 21:42 02/27/22 21:44 Temperature Pulse Rate 88 Respiratory Rate 18 Blood Pressure Pulse Oximetry 95 Oxygen Delivery Room Air Room Air 02/27/22 22:44 02/27/22 20:00 02/28/22 02:45 Temperature 98.2 F Pulse Rate 90 89 76 Respiratory Rate 20 18 Blood Pressure 122/46 L Pulse Oximetry 98 Oxygen Delivery 02/27/22 21:54 02/28/22 02:55 02/28/22 07:43 Temperature 97.4 F L Pulse Rate 87 74 84 Respiratory Rate 18 18 16 Blood Pressure 127/73 Pulse Oximetry 94 Oxygen Delivery 02/28/22 09:53 02/28/22 09:56 02/28/22 10:00 Temperature Pulse Rate 78 75 Respiratory Rate 18 18 Blood Pressure Pulse Oximetry 94 Oxygen Delivery Room Air 02/28/22 08:00 02/28/22 08:00 02/28/22 12:00 Temperature Pulse Rate 88 98 Respiratory Rate Blood Pressure Pulse Oximetry Oxygen Delivery Room Air Intake/Output Intake/Output: Intake & Output 02/25/22 02/26/22 02/27/22 02/28/22 23:59 23:59 23:59 23:59 Intake Total 0 1730 420 Balance 0 1730 420 Meds/Results Medications: Active Medications Generic Name Dose Route Start Last Admin Trade Name Freq PRN Reason Stop Dose Admin Acetaminophen 650 mg 02/26/22 20:50 Acetaminophen 325 Mg Tablet
[2022-02-28] MEDS: IRON SUCROSE COMPLEX 500 MG in SODIUM CHLORIDE 0.9% IV 250 ML 78.57 MG IVPB (17:32)
[2022-03-01] VITALS (15 sets, daily range): BP systolic 124–126; BP diastolic 48–60; PULSE 82–99; RESP 16–18; TEMP 36.6; O2SAT 90–93
[2022-03-01 00:49] LABS: Hematocrit 29.5 % (37.0-47.0); Hemoglobin 8.6 g/dL (12.0-15.0)
[2022-03-01 01:54] LABS: Basophils Percent Auto 0.5 % (0.2-1.2); Eosinophils Absolute Auto 0.9 K/mm3 (0-0.3); Eosinophils Percent Auto 12.1 % (0-4.4); Hematocrit 29.5 % (37.0-47.0); Hemoglobin 8.6 g/dL (12.0-15.0); Immature Granulocyte Absolute 0.07 K/mm3 (0.00-0.031); Immature Granulocyte Percent A 0.9 % (0-0.5); Immature Platelet Fraction Pct 5.9 % (0.9-11.2); Lymphocytes Absolute Auto 1.13 K/mm3 (0.9-3.2); Lymphocytes Percent Auto 15.1 % (18.3-44.2); Mean Corpuscular HGB Conc 29.2 g/dl (32-36); Mean Corpuscular Hemoglobin 22.5 pg (26-34); Mean Platelet Volume 10.6 fl (7.4-10.4); Monocytes Percent Auto 13.5 % (2.6-8.5); Neutrophils Absolute Auto 4.3 K/mm3 (1.3-6.7); Neutrophils Percent Auto 57.9 % (45.5-73.1); Nucleated Red Blood Cells Absolute Auto 0.2 K/mm3 (0.0-0.012); Platelet Count Result 466 k/mm3 (150-375); Red Blood Count 3.83 M/mm3 (4.2-5.4); Red Cell Distribution Width 26.7 % (11.5-14.5); White Blood Count 7.5 K/mm3 (4.5-10.0)
[2022-03-01 02:08] LABS: Alanine Aminotransferase 14 U/L (6-35); Albumin Level 2.9 g/dL (3.5-5.1); Alkaline Phosphatase 101 U/L (38-126); Anion Gap 9 mmol/L (8-16); Aspartate Amino Transferase 25 U/L (14-36); Bilirubin,Total 0.6 mg/dL (0.2-1.3); Blood Urea Nitrogen 9 mg/dL (7-17); Calcium 8.3 mg/dL (8.4-10.2); Carbon Dioxide 28 mmol/L (22-30); Chloride 98 mmol/L (98-107); Estimated CRCL calculation 68 ml/min; Estimated Glomerular Filt Rate > 60; Glucose 103 mg/dL (65-110); Potassium 3.4 mmol/L (3.4-5.0); Sodium 135 mmol/L (137-145)
[2022-03-01 02:10] LABS: Anisocytosis 3+ (NORMAL); Hypochromasia 2+ (NORMAL); Microcytosis 1+ (NORMAL); Platelet Estimate Increased (Adequate); Stomatocytes 2+ (NORMAL)
[2022-03-01] MEDS: IPRATROPIUM BR 0.02% INH SOLN 0.5 MG/2.5 ML VIAL INHALATION ×4 (02:43→20:15)
[2022-03-01] MEDS: THERAPEUTIC MULTIVITAMINS/MINERALS TAB (*BKC) 1 TABLET PO (08:06)
[2022-03-01] MEDS: PANTOPRAZOLE SODIUM IV 40 MG VIAL IV PUSH ×2 (08:06→17:30)
[2022-03-01] MEDS: FUROSEMIDE INJ 40 MG/4 ML VIAL IV PUSH ×2 (08:06→17:30)
[2022-03-01] MEDS: CALCIUM CARBONATE (TUMS) 500 MG (200 MG ELEMENTAL) 400 MG PO (08:06)
[2022-03-01] MEDS: polyethylene glycoL 3350 17 GM POWD.PACK PO (08:07)
[2022-03-01] MEDS: TOLNAFTATE 1% POWDER 45 GM BTL 1 APPLIC TOPICAL ×2 (08:07→21:34)
[2022-03-01] MEDS: oxyCODONE HCL (*CRX) 2.5 MG TAB IR PO ×2 (08:12→21:34)
--- NOTE | 2022-03-01 12:37 | WPDGIPROGNO ---
Progress Note: A&P Assessment and Plan (1) Occult blood in stools: Code(s): R19.5 - Other fecal abnormalities Status: Acute Assessment and Plan: she never had scopes she is doing well with adequate h/h response after blood transfusion no overt gib but noted occult blood in stools egd and colonoscopy by Dr Fernandez this Thursday (2) REED (iron deficiency anemia): Code(s): D50.9 - Iron deficiency anemia, unspecified Status: Acute Assessment and Plan: will need further investigation with egd and colonoscopy (3) Acute exacerbation of CHF (congestive heart failure): Code(s): I50.9 - Heart failure, unspecified Status: Acute Assessment and Plan: due to severe anemia, resolved (4) Abnormal CT scan, stomach: Code(s): R93.3 - Abnormal findings on diagnostic imaging of other parts of digestive tract Status: Acute Assessment and Plan: will assess with egd tolerating diet iv protonix for now (5) GI bleed: Code(s): K92.2 - Gastrointestinal hemorrhage, unspecified Status: Acute Assessment and Plan: iv protonix (6) Amputation of left lower extremity below knee: Code(s): S88.112A - Complete traumatic amputation at level between knee and ankle, left lower leg, initial encounter Status: Acute Subjective Date/time seen: 03/01/22 12:37 Interval history: doing well, eating, no new complain, less edema in her leg Review of Systems Review of Systems: All systems reviewed & are unremarkable except as noted in HPI and below Exam Const: General: comfortable and no acute distress HENMT: General nose exam: Normal nares present Eyes: General: appearance normal, both eyes and all related structures Neck: Neck: no JVD Resp: Auscultation: clear to auscultation bilaterally Cardio: Rate: regular rate Rhythm: regular rhythm GI: Inspection: non-distended GI Palp: Yes Soft to palpation, No Tenderness to palpation present (GI) and No Guarding due to palpation present (GI) Auscultation: normal bowel sounds Skin: General skin exam: normal color Neuro: Speech: normal speech Extrem: Other: left BKA Psych: Mental Status: mental status grossly normal Objective Data Vital Signs Vital Signs: Vital Signs - 24 hr 02/28/22 14:58 02/28/22 15:05 02/28/22 16:00 Temperature 97.6 F Pulse Rate 90 87 82 Respiratory Rate 18 18 16 Blood Pressure 128/70 Pulse Oximetry 95 Oxygen Delivery 02/28/22 16:00 02/28/22 20:09 02/28/22 20:09 Temperature Pulse Rate 92 94 Respiratory Rate 18 Blood Pressure Pulse Oximetry 92 Oxygen Delivery Room Air 02/28/22 20:49 02/28/22 20:00 02/28/22 20:00 Temperature 97.9 F Pulse Rate 92 92 Respiratory Rate 16 Blood Pressure 118/66 Pulse Oximetry 94 Oxygen Delivery Room Air 03/01/22 00:00 03/01/22 02:44 02/28/22 20:19 Temperature Pulse Rate 88 82 92 Respiratory Rate 18 18 Blood Pressure Pulse Oximetry Oxygen Delivery 03/01/22 04:00 03/01/22 08:29 03/01/22 08:38 Temperature Pulse Rate 86 87 90 Respiratory Rate 18 18 Blood Pressure Pulse Oximetry Oxygen Delivery 03/01/22 10:58 03/01/22 08:00 03/01/22 08:00 Temperature 97.9 F Pulse Rate 89 89 84 Respiratory Rate 16 16 Blood Pressure 126/60 Pulse Oximetry 90 90 Oxygen Delivery Room Air Intake/Output Intake/Output: Intake & Output 02/26/22 02/27/22 02/28/22 03/01/22 23:59 23:59 23:59 23:59 Intake Total 0 1730 1655 440 Output Total 650 Balance 0 1730 1005 440 Meds/Results Medications: Active Medications Generic Name Dose Route Start Last Admin Trade Name Freq PRN Reason Stop Dose Admin Acetaminophen 650 mg 02/26/22 20:50 Acetaminophen 325 Mg Tablet PO Q4H PRN Mild Pain (1-3) or Fever Acetaminophen 500 mg 02/27/22 07:45 Acetaminophen 500 Mg Tablet PO Q8H PRN Pain Albuterol 2.5 mg 02/26/22
--- NOTE | 2022-03-01 16:41 | PM.IMPN ---
Progress Note: A&P Assessment and Plan (1) GI bleed: Code(s): K92.2 - Gastrointestinal hemorrhage, unspecified Status: Acute Assessment and Plan: Fecal occult blood test positive, continue PPI, hgb stable after 4u pRBCs, monitor hemoglobin closely, gastritis and esophagitis noted on CT scan GI planning EGD/colonoscopy after HF and hgb stabilizes, likely on Thursday (2) Chronic anticoagulation: Code(s): Z79.01 - intermediate (current) use of anticoagulants Status: Acute Assessment and Plan: Holding Eliquis for now (3) Amputation of left lower extremity below knee: Code(s): S88.112A - Complete traumatic amputation at level between knee and ankle, left lower leg, initial encounter Status: Acute (4) COPD (chronic obstructive pulmonary disease): Code(s): J44.9 - Chronic obstructive pulmonary disease, unspecified Status: Acute Assessment and Plan: Stable (5) Chronic heart failure: Code(s): I50.9 - Heart failure, unspecified Status: Acute Assessment and Plan: Improved on increased lasix dose, will give one more day of diuresis, then switch back to po on Thursday (6) Fecal impaction: Code(s): K56.41 - Fecal impaction Status: Acute Assessment and Plan: resolved Plan DVT prophylaxis with SCDs GI prophylaxis with PPI Code status full code Subjective Date/time seen: 03/01/22 16:41 Exam Narrative: General: No acute distress, alert and oriented per baseline HEENT: Atraumatic, normocephalic, mucous membranes moist CV: Regular rate and rhythm, S1, S2 Lungs: Clear to auscultation bilaterally, no rales or crackles noted, no wheezes, good air entry Abdomen: Soft, nontender, nondistended Extremities: Normal to inspection, edema in LE much improved from yesterday Skin: No rashes noted, no lesions or wounds seen Psych: Euthymic, normal affect Objective Data Vital Signs Vital Signs: Vital Signs - 24 hr 02/28/22 20:09 02/28/22 20:09 02/28/22 20:49 Temperature 97.9 F Pulse Rate 94 92 Respiratory Rate 18 16 Blood Pressure 118/66 Pulse Oximetry 92 94 Oxygen Delivery Room Air 02/28/22 20:00 02/28/22 20:00 03/01/22 00:00 Temperature Pulse Rate 92 88 Respiratory Rate Blood Pressure Pulse Oximetry Oxygen Delivery Room Air 03/01/22 02:44 02/28/22 20:19 03/01/22 04:00 Temperature Pulse Rate 82 92 86 Respiratory Rate 18 18 Blood Pressure Pulse Oximetry Oxygen Delivery 03/01/22 08:29 03/01/22 08:38 03/01/22 10:58 Temperature 97.9 F Pulse Rate 87 90 89 Respiratory Rate 18 18 16 Blood Pressure 126/60 Pulse Oximetry 90 Oxygen Delivery 03/01/22 08:00 03/01/22 08:00 03/01/22 12:00 Temperature Pulse Rate 89 84 94 Respiratory Rate 16 Blood Pressure Pulse Oximetry 90 Oxygen Delivery Room Air 03/01/22 13:47 03/01/22 13:58 03/01/22 16:00 Temperature Pulse Rate 96 94 99 Respiratory Rate 18 18 Blood Pressure Pulse Oximetry Oxygen Delivery Intake/Output Intake/Output: Intake & Output 02/26/22 02/27/22 02/28/22 03/01/22 23:59 23:59 23:59 23:59 Intake Total 0 1730 1655 680 Output Total 650 Balance 0 1730 1005 680 Meds/Results Medications: Active Medications Generic Name Dose Route Start Last Admin Trade Name Freq PRN Reason Stop Dose Admin Acetaminophen 650 mg 02/26/22 20:50 Acetaminophen 325 Mg Tablet PO Q4H PRN Mild Pain (1-3) or Fever Acetaminophen 500 mg 02/27/22 07:45 Acetaminophen 500 Mg Tablet PO Q8H PRN Pain Albuterol 2.5 mg 02/26/22 23:06 Albuterol Sulfate Neb 2.5 Mg/3 Ml Inh INHALATION Q6HRT PRN Shortness Of Breath Calcium Carbonate 400 mg 02/27/22 09:00 03/01/22 08:06 Calcium Carbonate (Tums) 500 Mg (200 Mg Elemental) PO 400 mg DAILY TARA Administration Ergocalciferol 50,000 unit 02/27/22 09:00 02/27/22 09:19 Ergocalci
[2022-03-01 20:07] LABS: Appearance Urine Clear (Clear); Bilirubin Urine Negative (Negative); Color Urine Yellow (Yellow); Glucose Urine UA Negative (Negative); Ketones Urine Negative (Negative); Leukocyte Esterase Ur Trace LEU/UL (NEGATIVE); Nitrate Urine Negative (Negative); Protein Urine Negative (Negative); Specific Grav Ur 1.015 (1.001-1.035); Urobilinogen Urine 0.2 mg/dL (<2.0)
[2022-03-01 20:12] LABS: RBC Urine 0-2 /hpf (0-2); Squamous Epithelial Cell Urine Rare /hpf (Few); WBC Urine 0-3 /hpf (0-3)
[2022-03-01] MEDS: ALBUTEROL SULFATE NEB 2.5 MG/3 ML INH INHALATION (20:15)
[2022-03-01 20:18] LABS: Add Urine Microscopic? YES; Blood Urine Trace-Intact (Negative)
[2022-03-02] VITALS (16 sets, daily range): BP systolic 130–136; BP diastolic 59–63; PULSE 78–91; RESP 16–18; TEMP 36.6–36.7; O2SAT 93–95
[2022-03-02] MEDS: IPRATROPIUM BR 0.02% INH SOLN 0.5 MG/2.5 ML VIAL INHALATION ×4 (01:52→20:31)
--- NOTE | 2022-03-02 09:24 | WPDGIPROGNO ---
Progress Note: A&P Assessment and Plan (1) Occult blood in stools: Code(s): R19.5 - Other fecal abnormalities Status: Acute Assessment and Plan: she never had scopes no overt gib but noted occult blood in stools, h/h stable after blood transfusion egd and colonoscopy by Dr Fernandez tomorrow, will start bowel prep later today (2) REED (iron deficiency anemia): Code(s): D50.9 - Iron deficiency anemia, unspecified Status: Acute Assessment and Plan: will need further investigation with egd and colonoscopy (3) Acute exacerbation of CHF (congestive heart failure): Code(s): I50.9 - Heart failure, unspecified Status: Acute Assessment and Plan: due to severe anemia, resolved (4) Abnormal CT scan, stomach: Code(s): R93.3 - Abnormal findings on diagnostic imaging of other parts of digestive tract Status: Acute Assessment and Plan: will assess with egd tolerating diet iv protonix for now (5) GI bleed: Code(s): K92.2 - Gastrointestinal hemorrhage, unspecified Status: Acute Assessment and Plan: iv protonix (6) Amputation of left lower extremity below knee: Code(s): S88.112A - Complete traumatic amputation at level between knee and ankle, left lower leg, initial encounter Status: Acute Subjective Date/time seen: 03/02/22 09:24 Interval history: no new events, no signs of active gib Review of Systems Review of Systems: All systems reviewed & are unremarkable except as noted in HPI and below Exam Const: General: comfortable and no acute distress HENMT: General nose exam: Normal nares present Eyes: General: appearance normal, both eyes and all related structures Neck: Neck: no JVD Resp: Auscultation: clear to auscultation bilaterally Cardio: Rate: regular rate Rhythm: regular rhythm GI: Inspection: non-distended GI Palp: Yes Soft to palpation, No Tenderness to palpation present (GI) and No Guarding due to palpation present (GI) Auscultation: normal bowel sounds Skin: General skin exam: normal color Neuro: Speech: normal speech Extrem: Other: left BKA Psych: Mental Status: mental status grossly normal Objective Data Vital Signs Vital Signs: Vital Signs - 24 hr 03/01/22 10:58 03/01/22 12:00 03/01/22 13:47 Temperature 97.9 F Pulse Rate 89 94 96 Respiratory Rate 16 18 Blood Pressure 126/60 Pulse Oximetry 90 Oxygen Delivery 03/01/22 13:58 03/01/22 16:00 03/01/22 19:47 Temperature Pulse Rate 94 99 Respiratory Rate 18 Blood Pressure Pulse Oximetry Oxygen Delivery Room Air 03/01/22 20:10 03/01/22 20:10 03/01/22 20:18 Temperature Pulse Rate 91 91 95 Respiratory Rate 18 18 Blood Pressure Pulse Oximetry 93 Oxygen Delivery Room Air 03/01/22 21:58 03/01/22 20:00 03/02/22 00:00 Temperature 98 F Pulse Rate 97 92 86 Respiratory Rate 16 Blood Pressure 124/48 L Pulse Oximetry 92 Oxygen Delivery 03/02/22 01:45 03/02/22 01:54 03/02/22 04:00 Temperature Pulse Rate 87 90 84 Respiratory Rate 18 18 Blood Pressure Pulse Oximetry Oxygen Delivery 03/02/22 08:33 03/02/22 08:43 Temperature Pulse Rate 90 91 Respiratory Rate 18 18 Blood Pressure Pulse Oximetry Oxygen Delivery Intake/Output Intake/Output: Intake & Output 02/27/22 02/28/22 03/01/22 03/02/22 23:59 23:59 23:59 23:59 Intake Total 1730 1655 1120 100 Output Total 650 Balance 1730 1005 1120 100 Meds/Results Medications: Active Medications Generic Name Dose Route Start Last Admin Trade Name Freq PRN Reason Stop Dose Admin Acetaminophen 650 mg 02/26/22 20:50 Acetaminophen 325 Mg Tablet PO Q4H PRN Mild Pain (1-3) or Fever Acetaminophen 500 mg 02/27/22 07:45 Acetaminophen 500 Mg Tablet PO Q8H PRN Pain Albuterol 2.5 mg 02/26/22 23:06 03/01/22 20:15 Albuterol Sulfate Neb 2.5 Mg/3 Ml Inh
[2022-03-02] MEDS: CALCIUM CARBONATE (TUMS) 500 MG (200 MG ELEMENTAL) 400 MG PO (09:39)
[2022-03-02] MEDS: polyethylene glycoL 3350 17 GM POWD.PACK PO (09:39)
[2022-03-02] MEDS: TOLNAFTATE 1% POWDER 45 GM BTL 1 APPLIC TOPICAL ×2 (09:39→21:51)
[2022-03-02] MEDS: FUROSEMIDE INJ 40 MG/4 ML VIAL IV PUSH (09:39)
[2022-03-02] MEDS: oxyCODONE HCL (*CRX) 2.5 MG TAB IR PO ×2 (09:39→21:49)
[2022-03-02] MEDS: THERAPEUTIC MULTIVITAMINS/MINERALS TAB (*BKC) 1 TABLET PO (09:39)
[2022-03-02] MEDS: PANTOPRAZOLE SODIUM IV 40 MG VIAL IV PUSH ×2 (09:39→16:50)
--- NOTE | 2022-03-02 16:26 | PM.IMPN ---
Progress Note: A&P Assessment and Plan (1) GI bleed: Code(s): K92.2 - Gastrointestinal hemorrhage, unspecified Status: Acute Assessment and Plan: Fecal occult blood test positive, continue PPI, hgb stable after 4u pRBCs, monitor hemoglobin closely, gastritis and esophagitis noted on CT scan GI planning EGD/colonoscopy after HF and hgb stabilizes, likely on Thursday (2) Chronic anticoagulation: Code(s): Z79.01 - skilled nursing (current) use of anticoagulants Status: Acute Assessment and Plan: Holding Eliquis for now (3) Amputation of left lower extremity below knee: Code(s): S88.112A - Complete traumatic amputation at level between knee and ankle, left lower leg, initial encounter Status: Acute (4) COPD (chronic obstructive pulmonary disease): Code(s): J44.9 - Chronic obstructive pulmonary disease, unspecified Status: Acute Assessment and Plan: Stable (5) Chronic heart failure: Code(s): I50.9 - Heart failure, unspecified Status: Acute Assessment and Plan: Appears euvolemic now, we will discontinue IV diuresis and switch to p.o. (6) Fecal impaction: Code(s): K56.41 - Fecal impaction Status: Acute Assessment and Plan: resolved (7) Abnormal urinalysis: Code(s): R82.90 - Unspecified abnormal findings in urine Status: Acute Assessment and Plan: Started on Rocephin in the ER, appears no culture was sent, urine culture sent yesterday is still pending, will continue Rocephin until is comes back Plan DVT prophylaxis with SCDs GI prophylaxis with PPI Code status full code Subjective Date/time seen: 03/02/22 16:26 Interval history: No overnight events noted. No chest pain or shortness of breath. No nausea, vomiting or diarrhea. No fevers or chills. Review of Systems Review of Systems: 12 point review of systems was assessed and was negative except as noted in the HPI Exam Narrative: General: HEENT: Atraumatic, normocephalic, mucous membranes moist CV: Regular rate and rhythm, S1, S2 Lungs: Clear to auscultation bilaterally, no rales or crackles noted, no wheezes, good air entry Abdomen: Soft, nontender, nondistended Extremities: Normal to inspection, edema significantly improved Skin: No rashes noted, no lesions or wounds seen Psych: Euthymic, normal affect Objective Data Vital Signs Vital Signs: Vital Signs - 24 hr 03/01/22 19:47 03/01/22 20:10 03/01/22 20:10 Temperature Pulse Rate 91 91 Respiratory Rate 18 Blood Pressure Pulse Oximetry 93 Oxygen Delivery Room Air Room Air 03/01/22 20:18 03/01/22 21:58 03/01/22 20:00 Temperature 98 F Pulse Rate 95 97 92 Respiratory Rate 18 16 Blood Pressure 124/48 L Pulse Oximetry 92 Oxygen Delivery 03/02/22 00:00 03/02/22 01:45 03/02/22 01:54 Temperature Pulse Rate 86 87 90 Respiratory Rate 18 18 Blood Pressure Pulse Oximetry Oxygen Delivery 03/02/22 04:00 03/02/22 08:33 03/02/22 08:43 Temperature Pulse Rate 84 90 91 Respiratory Rate 18 18 Blood Pressure Pulse Oximetry Oxygen Delivery 03/02/22 08:00 03/02/22 09:45 03/02/22 11:17 Temperature 97.9 F Pulse Rate 83 79 Respiratory Rate 16 Blood Pressure 130/63 Pulse Oximetry 93 Oxygen Delivery Room Air 03/02/22 13:54 03/02/22 12:00 03/02/22 14:04 Temperature Pulse Rate 86 86 88 Respiratory Rate 18 18 Blood Pressure Pulse Oximetry Oxygen Delivery Intake/Output Intake/Output: Intake & Output 02/27/22 02/28/22 03/01/22 03/02/22 23:59 23:59 23:59 23:59 Intake Total 1730 1655 1120 630 Output Total 650 Balance 1730 1005 1120 630 Meds/Results Medications: Active Medications Generic Name Dose Route Start Last Admin Trade Name Freq PRN Reason Stop Dose Admin Acetaminophen 650 mg 02/26/22 20:50 Acetaminophen 325 Mg Tablet PO Q4H PRN Mild Pain (
[2022-03-02] MEDS: BISACODYL 5 MG TABLET EC 20 MG PO (18:13)
[2022-03-02] MEDS: polyethylene glycoL 3350 238 GM BOTTLE PO (20:10)
[2022-03-02] MEDS: ALBUTEROL SULFATE NEB 2.5 MG/3 ML INH INHALATION (20:31)
[2022-03-02 21:11] LABS: Hematocrit 35.2 % (37.0-47.0); Hemoglobin 9.8 g/dL (12.0-15.0)
[2022-03-03] VITALS (17 sets, daily range): BP systolic 115–150; BP diastolic 49–80; PULSE 57–93; RESP 16–21; TEMP 36.5–37; O2SAT 91–96
[2022-03-03] MEDS: IPRATROPIUM BR 0.02% INH SOLN 0.5 MG/2.5 ML VIAL INHALATION ×4 (02:23→19:30)
[2022-03-03] MEDS: FUROSEMIDE 20 MG TABLET PO (08:20)
[2022-03-03] MEDS: THERAPEUTIC MULTIVITAMINS/MINERALS TAB (*BKC) 1 TABLET PO (08:20)
[2022-03-03] MEDS: PANTOPRAZOLE SODIUM IV 40 MG VIAL IV PUSH ×2 (08:20→16:44)
[2022-03-03] MEDS: TOLNAFTATE 1% POWDER 45 GM BTL 1 APPLIC TOPICAL ×2 (08:22→20:34)
[2022-03-03] MEDS: PEG (High)/E-LYTE SOLN 4,000 ML BTL 1000 ML PO (08:22)
[2022-03-03] MEDS: oxyCODONE HCL (*CRX) 2.5 MG TAB IR PO ×2 (08:23→20:33)
--- NOTE | 2022-03-03 14:01 | WPDANESEPPF ---
Anes - Initial Pre Proc Eval Procedure: Operation Date: 03/03/22 14:30 Proposed Procedures p Esophagogastroduodenoscopy & Colonoscopy - Tristan Fernandez MD Date/Time: 03/03/22 14:01 Surgeon: Sylvie Kennedy MD Pre Op Diagnosis: Symptomatic Anemia Patient Data Age: 76 Gender: F Height: 1.68 m Weight: 80.3 kg Last Vital Signs Temp 97.8 F 03/03/22 06:00 Pulse 73 03/03/22 13:43 Resp 20 03/03/22 13:43 BP 133/71 03/03/22 06:00 Pulse Ox 93 03/03/22 06:00 O2 Del Method Room Air 03/03/22 08:20 Allergies Allergy/AdvReac Type Severity Reaction Status Date / Time No Known Allergies Allergy Verified 03/03/22 13:59 Home Medications Medication Instructions Recorded Confirmed Type acetaminophen 500 mg tablet 500 mg PO Q8H PRN Pain 02/27/22 02/27/22 History apixaban 5 mg tablet (Eliquis) 5 mg PO BID 02/27/22 02/27/22 History aspirin 81 mg capsule,delayed 81 mg PO DAILY 02/27/22 02/27/22 History release calcium carbonate 200 mg calcium 400 mg PO DAILY 02/27/22 02/27/22 History (500 mg) chewable tablet (Vasquez-Gest Antacid) ergocalciferol (vitamin D2) 1,250 1,250 mcg PO WEEKLY 02/27/22 02/27/22 History mcg (50,000 unit) capsule furosemide 20 mg tablet 20 mg PO DAILY 02/27/22 02/27/22 History multivitamin with minerals 1 tablet PO DAILY 02/27/22 02/27/22 History (Multiple Vitamin-Minerals tablet) omeprazole 10 mg capsule,delayed 10 mg PO HS 02/27/22 02/27/22 History release ondansetron 4 mg disintegrating 4 mg PO Q8H PRN Nausea 02/27/22 02/27/22 History tablet oxycodone 5 mg tablet 2.5 mg PO Q12H 02/27/22 02/27/22 History Laboratory Tests 03/02/22 20:57 Hgb 9.8 g/dL L g/dL (12.0-15.0) Hct 35.2 % L % (37.0-47.0) Patient hx anesthesia problems: none Family hx anesthesia problems: none Results Review: All pre-operative results and documents have been reviewed as part of the pre-operative evaluation. [facility] Past Medical History Medical History (Updated 03/02/22 @ 16:29 by Carmelita Atwood DO) Abnormal CT scan, stomach Amputation of left lower extremity below knee Below knee amputation Chronic anticoagulation COPD (chronic obstructive pulmonary disease) Social History Social History Smoking status: Never smoker Alcohol intake: never Substance use: never Spiritual care concerns: No Anes - Eval Final PreProcedure Day of Procedure 03/03/22 14:01 Patient weight: normal Heart: regular rate and rhythm Lungs: clear to auscultation Airway: Mallampati scale class II Neurological: alert and oriented Last oral intake: >/= 8 hours ASA classification: III Emergent: no Anesthetic plan: proceed Anesthesia type and monitoring: general GIVS and standard monitoring Results Review: All pre-operative results and documents have been reviewed as part of the pre-operative evaluation. Informed Consent: The patient's anesthetic plan and its attendant risks and benefits were discussed with the patient/family/POA. Questions were solicited and answers provided to the satisfaction of the patient/family/POA.
[2022-03-03] MEDS: LACTATED RINGERS 1,000 ML 150 ML IV CONT (14:03)
--- NOTE | 2022-03-03 14:35 | SUR.OPER ---
EGD: Start 14:23, End 14:26, Colon: Start 14:32, End 14:49
[2022-03-03 15:04] LABS: Glucose Point of Care 93 mg/dl (65-105)
[2022-03-03] MEDS: FERROUS SULFATE 324 MG TABLET PO (16:44)
--- NOTE | 2022-03-03 17:25 | PM.IMPN ---
Progress Note: A&P Assessment and Plan (1) GI bleed: Code(s): K92.2 - Gastrointestinal hemorrhage, unspecified Status: Acute Assessment and Plan: Fecal occult blood test positive, continue PPI, hgb stable after 4u pRBCs, monitor hemoglobin closely, gastritis and esophagitis noted on CT scan GI planning EGD/colonoscopy today (2) Chronic anticoagulation: Code(s): Z79.01 - intermediate accountant (current) use of anticoagulants Status: Acute Assessment and Plan: Holding Eliquis for now (3) Amputation of left lower extremity below knee: Code(s): S88.112A - Complete traumatic amputation at level between knee and ankle, left lower leg, initial encounter Status: Acute (4) COPD (chronic obstructive pulmonary disease): Code(s): J44.9 - Chronic obstructive pulmonary disease, unspecified Status: Acute Assessment and Plan: Stable (5) Chronic heart failure: Code(s): I50.9 - Heart failure, unspecified Status: Acute Assessment and Plan: Appears euvolemic now, we will discontinue IV diuresis and switch to p.o. (6) Fecal impaction: Code(s): K56.41 - Fecal impaction Status: Acute Assessment and Plan: resolved (7) Abnormal urinalysis: Code(s): R82.90 - Unspecified abnormal findings in urine Status: Acute Assessment and Plan: Started on Rocephin in the ER, appears no culture was sent, urine culture sent yesterday is still pending, will continue Rocephin until is comes back Plan DVT prophylaxis with SCDs GI prophylaxis with PPI Code status full code Subjective Date/time seen: 03/03/22 17:25 Exam Narrative: General: HEENT: Atraumatic, normocephalic, mucous membranes moist CV: Regular rate and rhythm, S1, S2 Lungs: Clear to auscultation bilaterally, no rales or crackles noted, no wheezes, good air entry Abdomen: Soft, nontender, nondistended Extremities: Normal to inspection, edema significantly improved Skin: No rashes noted, no lesions or wounds seen Psych: Euthymic, normal affect Objective Data Vital Signs Vital Signs: Vital Signs - 24 hr 03/02/22 20:25 03/02/22 20:25 03/02/22 20:33 Temperature Pulse Rate 78 78 81 Respiratory Rate 18 18 Blood Pressure Pulse Oximetry 93 Oxygen Delivery Room Air 03/02/22 22:42 03/02/22 20:00 03/03/22 00:00 Temperature 98.1 F Pulse Rate 79 80 70 Respiratory Rate 18 Blood Pressure 136/59 L Pulse Oximetry 95 Oxygen Delivery 03/03/22 04:00 03/03/22 06:00 03/03/22 09:56 Temperature 97.8 F Pulse Rate 83 73 85 Respiratory Rate 16 18 Blood Pressure 133/71 Pulse Oximetry 93 Oxygen Delivery 03/03/22 10:03 03/03/22 08:00 03/03/22 08:20 Temperature Pulse Rate 73 84 Respiratory Rate 20 Blood Pressure Pulse Oximetry Oxygen Delivery Room Air 03/03/22 13:35 03/03/22 13:43 03/03/22 14:01 Temperature 98.6 F Pulse Rate 57 L 73 84 Respiratory Rate 20 20 18 Blood Pressure 150/59 H Pulse Oximetry 95 Oxygen Delivery Room Air 03/03/22 12:00 03/03/22 14:57 03/03/22 15:07 Temperature Pulse Rate 84 82 85 Respiratory Rate 21 H 21 H Blood Pressure 125/71 115/49 L Pulse Oximetry 93 94 Oxygen Delivery Room Air Room Air 03/03/22 15:17 03/03/22 16:00 Temperature Pulse Rate 81 89 Respiratory Rate 18 Blood Pressure 140/50 L Pulse Oximetry 94 Oxygen Delivery Room Air Intake/Output Intake/Output: Intake & Output 02/28/22 03/01/22 03/02/22 03/03/22 23:59 23:59 23:59 23:59 Intake Total 1655 1120 1710 0 Output Total 650 5 Balance 1005 1120 1710 -5 Meds/Results Medications: Active Medications Generic Name Dose Route Start Last Admin Trade Name Freq PRN Reason Stop Dose Admin Acetaminophen 650 mg 02/26/22 20:50 Acetaminophen 325 Mg Tablet PO Q4H PRN Mild Pain (1-3) or Fever Acetaminophen 500 mg 02/27/22 07:45 Acetaminophen 500 Mg Tablet
[2022-03-03 21:19] LABS: Hematocrit 36.3 % (37.0-47.0); Hemoglobin 9.8 g/dL (12.0-15.0)
[2022-03-04] VITALS (12 sets, daily range): BP systolic 124–132; BP diastolic 59–64; PULSE 67–95; RESP 14–18; TEMP 36.9–37.1; O2SAT 90–95
[2022-03-04] MEDS: ALBUTEROL SULFATE NEB 2.5 MG/3 ML INH INHALATION (03:10)
[2022-03-04] MEDS: IPRATROPIUM BR 0.02% INH SOLN 0.5 MG/2.5 ML VIAL INHALATION ×2 (03:10→13:37)
[2022-03-04 06:35] LABS: Haptoglobin 225 mg/dL (43-212)
--- NOTE | 2022-03-04 08:01 | PC.NURSE ---
Addendum entered by Coty Rainey RN 03/04/22 08:02: pt. left floor at 07:41 Original Note: To Radiology per [ stretcher]. IV saline locked
--- NOTE | 2022-03-04 13:19 | WPDGIPROGNO ---
Progress Note: A&P Assessment and Plan (1) REED (iron deficiency anemia): Code(s): D50.9 - Iron deficiency anemia, unspecified Status: Acute Assessment and Plan: Patient with anemia and iron deficient indices. Plan for iron replacement. Small-bowel follow-through today to complete GI evaluation pending. Advance diet otherwise. (2) Occult blood in stools: Code(s): R19.5 - Other fecal abnormalities Status: Acute Assessment and Plan: No obvious bleeding. Occult blood in stool noted on presentation. Hemorrhoids identified at time of endoscopy. 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 Web was dilated at time of endoscopy. Previous inflammation potentially could contribute to anemia but no inflammation noted time of endoscopy. Plan for anti-reflux measures and PPI use which may be beneficial long-term given the stricture identified. Advance diet as tolerated. Subjective Date/time seen: 02/14 Patient alert comfortable today. No significant findings on endoscopy that would account for iron deficiency anemia. Hemorrhoids noted potentially contributing to occult blood in stool. Patient have small-bowel follow-through today. Patient notes no evidence for bleeding in her bowel movements. Denies abdominal pain. Review of Systems Review of Systems: Review of systems noncontributory. Exam Narrative: Physical exam reveals patient be alert. Vital signs stable. HEENT exam is unremarkable. She is anicteric. Lungs are clear. Heart without murmur. Abdomen bowel sounds present soft nontender with no hepatosplenomegaly. Extremities reveal previous amputation. Objective Data Vital Signs Vital Signs: Vital Signs - 24 hr 03/03/22 13:35 03/03/22 13:43 03/03/22 14:01 Temperature 98.6 F Pulse Rate 57 L 73 84 Respiratory Rate 20 20 18 Blood Pressure 150/59 H Pulse Oximetry 95 Oxygen Delivery Room Air 03/03/22 14:57 03/03/22 15:07 03/03/22 15:17 Temperature Pulse Rate 82 85 81 Respiratory Rate 21 H 21 H 18 Blood Pressure 125/71 115/49 L 140/50 L Pulse Oximetry 93 94 94 Oxygen Delivery Room Air Room Air Room Air 03/03/22 16:00 03/03/22 19:31 03/03/22 19:31 Temperature Pulse Rate 89 69 Respiratory Rate 18 Blood Pressure Pulse Oximetry 96 Oxygen Delivery Room Air 03/03/22 20:45 03/03/22 20:00 03/03/22 20:30 Temperature 97.7 F Pulse Rate 73 93 Respiratory Rate 16 Blood Pressure 142/80 H Pulse Oximetry 91 Oxygen Delivery Room Air 03/04/22 00:00 03/04/22 03:10 03/04/22 03:20 Temperature Pulse Rate 86 73 67 Respiratory Rate 18 18 Blood Pressure Pulse Oximetry Oxygen Delivery 03/04/22 04:00 03/04/22 06:40 03/04/22 08:00 Temperature 98.7 F Pulse Rate 82 81 85 Respiratory Rate 14 Blood Pressure 124/60 Pulse Oximetry 90 Oxygen Delivery 03/04/22 08:00 Temperature Pulse Rate Respiratory Rate Blood Pressure Pulse Oximetry Oxygen Delivery Room Air Intake/Output Intake/Output: Intake & Output 03/01/22 03/02/22 03/03/22 03/04/22 23:59 23:59 23:59 23:59 Intake Total 1120 1710 740 200 Output Total 5 Balance 1120 1710 735 200 Meds/Results Medications: Active Medications Generic Name Dose Route Start Last Admin Trade Name Freq PRN Reason Stop Dose Admin Acetaminophen 650 mg 02/26/22 20:50 Acetaminophen 325 Mg Tablet PO Q4H PRN Mild Pain (1-3) or Fever Acetaminophen 500 mg 02/27/22 07:45 Acetaminophen 500 Mg Tablet PO Q8H PRN Pain Albuterol 2.5 mg 02/26/22 23:06 03/04/22 03:10 Albuterol Sulfate Neb 2.5 Mg/3 Ml Inh INHALATION 2.5 mg Q6HRT PRN Administration Shortness Of Breath Calcium Carbonate 400 mg 02/27/22 09:00
[2022-03-04] MEDS: FUROSEMIDE 20 MG TABLET PO (14:26)
[2022-03-04] MEDS: TOLNAFTATE 1% POWDER 45 GM BTL 1 APPLIC TOPICAL ×2 (14:26→21:05)
[2022-03-04] MEDS: THERAPEUTIC MULTIVITAMINS/MINERALS TAB (*BKC) 1 TABLET PO (14:26)
[2022-03-04] MEDS: polyethylene glycoL 3350 17 GM POWD.PACK PO (14:26)
[2022-03-04] MEDS: PANTOPRAZOLE SODIUM IV 40 MG VIAL IV PUSH (16:38)
[2022-03-04] MEDS: FERROUS SULFATE 324 MG TABLET PO (16:38)
--- NOTE | 2022-03-04 18:25 | PM.IMPN ---
Progress Note: A&P Assessment and Plan (1) GI bleed: Code(s): K92.2 - Gastrointestinal hemorrhage, unspecified Status: Acute Assessment and Plan: Fecal occult blood test positive, continue PPI, hgb stable after 4u pRBCs, monitor hemoglobin closely, gastritis and esophagitis noted on CT scan GI planning EGD/colonoscopy today (2) Chronic anticoagulation: Code(s): Z79.01 - watermaster (current) use of anticoagulants Status: Acute Assessment and Plan: Holding Eliquis for now (3) Amputation of left lower extremity below knee: Code(s): S88.112A - Complete traumatic amputation at level between knee and ankle, left lower leg, initial encounter Status: Acute (4) COPD (chronic obstructive pulmonary disease): Code(s): J44.9 - Chronic obstructive pulmonary disease, unspecified Status: Acute Assessment and Plan: Stable (5) Chronic heart failure: Code(s): I50.9 - Heart failure, unspecified Status: Acute Assessment and Plan: Appears euvolemic now, we will discontinue IV diuresis and switch to p.o. (6) Fecal impaction: Code(s): K56.41 - Fecal impaction Status: Acute Assessment and Plan: resolved (7) Abnormal urinalysis: Code(s): R82.90 - Unspecified abnormal findings in urine Status: Acute Assessment and Plan: Urine culture came back negative, will discontinue Rocephin Plan DVT prophylaxis with SCDs GI prophylaxis with PPI Code status full code Subjective Date/time seen: 03/04/22 18:25 Interval history: No overnight events noted. No chest pain or shortness of breath. No nausea, vomiting or diarrhea. No fevers or chills. Review of Systems Review of Systems: 12 point review of systems was assessed and was negative except as noted in the HPI Exam Narrative: General: No acute distress, alert and oriented per baseline HEENT: Atraumatic, normocephalic, mucous membranes moist CV: Regular rate and rhythm, S1, S2 Lungs: Clear to auscultation bilaterally, no rales or crackles noted, no wheezes, good air entry Abdomen: Soft, nontender, nondistended Extremities: Normal to inspection, edema significantly improved Skin: No rashes noted, no lesions or wounds seen Psych: Euthymic, normal affect Objective Data Vital Signs Vital Signs: Vital Signs - 24 hr 03/03/22 19:31 03/03/22 19:31 03/03/22 20:45 Temperature 97.7 F Pulse Rate 69 73 Respiratory Rate 18 16 Blood Pressure 142/80 H Pulse Oximetry 96 91 Oxygen Delivery Room Air 03/03/22 20:00 03/03/22 20:30 03/04/22 00:00 Temperature Pulse Rate 93 86 Respiratory Rate Blood Pressure Pulse Oximetry Oxygen Delivery Room Air 03/04/22 03:10 03/04/22 03:20 03/04/22 04:00 Temperature Pulse Rate 73 67 82 Respiratory Rate 18 18 Blood Pressure Pulse Oximetry Oxygen Delivery 03/04/22 06:40 03/04/22 08:00 03/04/22 08:00 Temperature 98.7 F Pulse Rate 81 85 Respiratory Rate 14 Blood Pressure 124/60 Pulse Oximetry 90 Oxygen Delivery Room Air 03/04/22 13:30 03/04/22 13:37 03/04/22 12:00 Temperature Pulse Rate 76 75 90 Respiratory Rate 18 18 Blood Pressure Pulse Oximetry Oxygen Delivery 03/04/22 16:00 Temperature 98.4 F Pulse Rate 78 Respiratory Rate 15 Blood Pressure 128/64 Pulse Oximetry 92 Oxygen Delivery Intake/Output Intake/Output: Intake & Output 03/01/22 03/02/22 03/03/22 03/04/22 23:59 23:59 23:59 23:59 Intake Total 1120 1710 740 680 Output Total 5 Balance 1120 1710 735 680 Meds/Results Medications: Active Medications Generic Name Dose Route Start Last Admin Trade Name Freq PRN Reason Stop Dose Admin Acetaminophen 650 mg 02/26/22 20:50 Acetaminophen 325 Mg Tablet PO Q4H PRN Mild Pain (1-3) or Fever Acetaminophen 500 mg 02/27/22 07:45 Acetaminophen 500 Mg Tablet PO Q8H PRN Pain Albut
[2022-03-04] MEDS: oxyCODONE HCL (*CRX) 2.5 MG TAB IR PO (21:04)
[2022-03-04 21:52] LABS: Hemoglobin 9.6 g/dL (12.0-15.0)
[2022-03-05] VITALS (17 sets, daily range): BP systolic 129–143; BP diastolic 55–69; PULSE 75–93; RESP 16–20; TEMP 36.6–36.9; O2SAT 90–96
[2022-03-05] MEDS: IPRATROPIUM BR 0.02% INH SOLN 0.5 MG/2.5 ML VIAL INHALATION ×4 (02:47→20:40)
[2022-03-05] MEDS: ALBUTEROL SULFATE NEB 2.5 MG/3 ML INH INHALATION ×2 (02:47→20:40)
--- NOTE | 2022-03-05 07:20 | WPDGIPROGNO ---
Progress Note: A&P Assessment and Plan (1) REED (iron deficiency anemia): Code(s): D50.9 - Iron deficiency anemia, unspecified Status: Acute Assessment and Plan: Patient with iron deficiency anemia. GI workup essentially unremarkable. 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 Internal hemorrhoids identified on colon exam. Small-bowel follow-through unremarkable. Plan for iron replacement. Monitor hemoglobin with frequent CBC after discharge. I see no contraindication to restarting anticoagulation. Consider hematology evaluation if anemia persists. (2) Occult blood in stools: Code(s): R19.5 - Other fecal abnormalities Status: Acute Assessment and Plan: Occult blood in stool could be related internal hemorrhoids. No other obvious explanation. Continue to treat for GE reflux disease given esophageal web. (3) Esophageal web determined by endoscopy: Code(s): Q39.4 - Esophageal web Status: Acute Assessment and Plan: Patient tolerating diet with no difficulty. No hindrance to swallowing. Esophageal web dilated at time of endoscopy likely on the basis of GE reflux. Continue Protonix daily. 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 No obvious contraindication after GI week workup now completed. Subjective Date/time seen: 03/05/22 07:20 Patient alert comfortable this morning. Denies abdominal pain. Tolerated diet yesterday. No obvious bleeding reported. Review of Systems Review of Systems: Review of systems noncontributory. Exam Narrative: Physical exam reveals patient be alert. Vital signs stable. HEENT exam is unremarkable. Patient anicteric. Lungs are clear. Heart without murmur. Abdomen bowel sounds present soft nontender with no organomegaly. Extremities had amputation noted. Objective Data Vital Signs Vital Signs: Vital Signs - 24 hr 03/04/22 08:00 03/04/22 08:00 03/04/22 13:30 Temperature Pulse Rate 85 76 Respiratory Rate 18 Blood Pressure Pulse Oximetry Oxygen Delivery Room Air 03/04/22 13:37 03/04/22 12:00 03/04/22 16:00 Temperature 98.4 F Pulse Rate 75 90 78 Respiratory Rate 18 15 Blood Pressure 128/64 Pulse Oximetry 92 Oxygen Delivery 03/04/22 16:00 03/04/22 19:41 03/04/22 20:00 Temperature 98.4 F Pulse Rate 95 94 94 Respiratory Rate 14 Blood Pressure 132/59 L Pulse Oximetry 95 Oxygen Delivery 03/05/22 00:00 03/05/22 02:47 03/05/22 04:00 Temperature Pulse Rate 87 87 93 Respiratory Rate 20 Blood Pressure Pulse Oximetry Oxygen Delivery 03/05/22 05:53 Temperature 98.3 F Pulse Rate 86 Respiratory Rate 16 Blood Pressure 133/69 Pulse Oximetry 90 Oxygen Delivery Intake/Output Intake/Output: Intake & Output 03/02/22 03/03/22 03/04/22 03/05/22 23:59 23:59 23:59 23:59 Intake Total 1710 740 980 250 Output Total 5 Balance 1710 735 980 250 Meds/Results Medications: Active Medications Generic Name Dose Route Start Last Admin Trade Name Freq PRN Reason Stop Dose Admin Acetaminophen 650 mg 02/26/22 20:50 Acetaminophen 325 Mg Tablet PO Q4H PRN Mild Pain (1-3) or Fever Acetaminophen 500 mg 02/27/22 07:45 Acetaminophen 500 Mg Tablet PO Q8H PRN Pain Albuterol 2.5 mg 02/26/22 23:06 03/05/22 02:47 Albuterol Sulfate Neb 2.5 Mg/3 Ml Inh INHALATION 2.5 mg Q6HRT PRN Administration Shortness Of Breath Calcium Carbonate 400 mg 02/27/22 09:00 03/04/22 14:25 Calcium Carbonate (Tums) 500 Mg (200 Mg Elemental) PO Not Given DAILY [facility] Ergocalciferol 50,000 unit 02/27/22 09:00 02/27/22 09:19 Ergocalciferol 50,000 Unit Capsule PO 50,000 unit Th@0900 [facility] Administration Ferr
[2022-03-05] MEDS: FERROUS SULFATE 324 MG TABLET PO ×2 (07:51→16:40)
[2022-03-05] MEDS: CALCIUM CARBONATE (TUMS) 500 MG (200 MG ELEMENTAL) 400 MG PO (09:21)
[2022-03-05] MEDS: THERAPEUTIC MULTIVITAMINS/MINERALS TAB (*BKC) 1 TABLET PO (09:21)
[2022-03-05] MEDS: FUROSEMIDE 20 MG TABLET PO (09:21)
[2022-03-05] MEDS: polyethylene glycoL 3350 17 GM POWD.PACK PO (09:22)
[2022-03-05] MEDS: oxyCODONE HCL (*CRX) 2.5 MG TAB IR PO ×2 (09:22→20:02)
[2022-03-05] MEDS: PANTOPRAZOLE SODIUM IV 40 MG VIAL IV PUSH ×2 (09:22→16:40)
[2022-03-05] MEDS: TOLNAFTATE 1% POWDER 45 GM BTL 1 APPLIC TOPICAL ×2 (09:22→20:02)
--- NOTE | 2022-03-05 16:34 | PM.IMPN ---
Progress Note: A&P Assessment and Plan (1) GI bleed: Code(s): K92.2 - Gastrointestinal hemorrhage, unspecified Status: Acute Assessment and Plan: Fecal occult blood test positive, continue PPI, hgb stable after 4u pRBCs, monitor hemoglobin closely, gastritis and esophagitis noted on CT scan 03/04 GI planning EGD/colonoscopy today 03/05 EGD showed esophageal web. Colonoscopy showed internal hemorrhoids, diverticulosis and no obvious source for GI blood loss. Small bowel follow through showed a moderate sized sliding hiatal hernia and no etiology for anemia. GI recommends Hematology consult if anemia is persistent after appropriate iron supplement duration. -Will change PPI from IV to PO. Will monitor H/H with plan for possible discharge tomorrow. 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 (3) Amputation of left lower extremity below knee: Code(s): S88.112A - Complete traumatic amputation at level between knee and ankle, left lower leg, initial encounter Status: Acute Assessment and Plan: S/p left AKA (4) COPD (chronic obstructive pulmonary disease): Code(s): J44.9 - Chronic obstructive pulmonary disease, unspecified Status: Acute Assessment and Plan: Stable (5) Chronic heart failure: Code(s): I50.9 - Heart failure, unspecified Status: Acute Assessment and Plan: Appears euvolemic now, we will discontinue IV diuresis and switch to p.o. (6) Fecal impaction: Code(s): K56.41 - Fecal impaction Status: Acute Assessment and Plan: resolved (7) Abnormal urinalysis: Code(s): R82.90 - Unspecified abnormal findings in urine Status: Acute Assessment and Plan: Urine culture negative. Ceftriaxone discontinued. Plan DVT prophylaxis with SCDs GI prophylaxis with PPI Code status full code Subjective Date/time seen: 03/05/22 20:34 Patient says she feels better. Denies any melena or hematochezia. Review of Systems Gastrointestinal: Gastrointestinal: Denies abdominal pain, Denies melena, Denies hematochezia, Denies diarrhea and Denies hematemesis Exam Narrative: GENERAL: NAD, cooperative HEENT: Normocephalic, atraumatic, anicteric NECK: Supple CV: regular rate, no rubs or gallops RESP: CTAB, Normal work of breathing. Abdomen: Soft, non-tender, non-distended EXTREMITIES: Warm and well perfused, no clubbing, cyanosis, or edema. SKIN: warm, dry and intact. NEURO: CN 2-12 grossly intact. Objective Data Vital Signs Vital Signs: Vital Signs - 24 hr 03/05/22 00:00 03/05/22 02:47 03/05/22 04:00 Temperature Pulse Rate 87 87 93 Respiratory Rate 20 Blood Pressure Pulse Oximetry Oxygen Delivery 03/05/22 05:53 03/05/22 07:41 03/05/22 07:45 Temperature 98.3 F Pulse Rate 86 86 86 Respiratory Rate 16 18 Blood Pressure 133/69 Pulse Oximetry 90 92 Oxygen Delivery Room Air 03/05/22 07:51 03/05/22 08:00 03/05/22 08:00 Temperature 98.3 F Pulse Rate 82 84 85 Respiratory Rate 18 16 Blood Pressure 130/60 Pulse Oximetry 96 Oxygen Delivery 03/05/22 08:00 03/05/22 12:00 03/05/22 14:20 Temperature Pulse Rate 82 91 Respiratory Rate 18 Blood Pressure Pulse Oximetry Oxygen Delivery Room Air 03/05/22 14:27 03/05/22 16:00 03/05/22 16:00 Temperature 98.5 F Pulse Rate 89 93 88 Respiratory Rate 18 16 Blood Pressure 129/55 L Pulse Oximetry 92 Oxygen Delivery 03/05/22 19:16 03/05/22 19:56 Temperature 97.9 F Pulse Rate 75 Respiratory Rate 18 Blood Pressure 143/67 H Pulse Oximetry 95 Oxygen Delivery Room Air Intake/Output Intake/Output: Intake & Output 03/02/22 03/03/22 03/04/22 03/05/22 23:59 23:59 23:59 23:59 Intake Total 1710 819 116 5527 Output Tot
[2022-03-05 21:22] LABS: Hematocrit 36.3 % (37.0-47.0); Hemoglobin 9.9 g/dL (12.0-15.0)
[2022-03-06] VITALS (13 sets, daily range): BP systolic 128–143; BP diastolic 58–90; PULSE 62–89; RESP 16–18; TEMP 36.4–37; O2SAT 91–96
[2022-03-06] MEDS: IPRATROPIUM BR 0.02% INH SOLN 0.5 MG/2.5 ML VIAL INHALATION ×3 (02:02→13:16)
[2022-03-06 05:33] LABS: Hematocrit 36.5 % (37.0-47.0); Hemoglobin 9.9 g/dL (12.0-15.0); Immature Platelet Fraction Pct 4.7 % (0.9-11.2); Mean Corpuscular HGB Conc 27.1 g/dl (32-36); Mean Corpuscular Hemoglobin 23.2 pg (26-34); Mean Corpuscular Volume 85.7 fl (80-100); Mean Platelet Volume 9.9 fl (7.4-10.4); Platelet Count Result 217 k/mm3 (150-375); Red Blood Count 4.26 M/mm3 (4.2-5.4); White Blood Count 4.7 K/mm3 (4.5-10.0)
[2022-03-06 07:13] LABS: Anion Gap 7 mmol/L (8-16); Blood Urea Nitrogen 11 mg/dL (7-17); Calcium 8.4 mg/dL (8.4-10.2); Carbon Dioxide 24 mmol/L (22-30); Chloride 106 mmol/L (98-107); Estimated CRCL calculation 66 ml/min; Estimated Glomerular Filt Rate > 60; Glucose 104 mg/dL (65-110); Potassium 3.3 mmol/L (3.4-5.0); Sodium 137 mmol/L (137-145)
[2022-03-06] MEDS: THERAPEUTIC MULTIVITAMINS/MINERALS TAB (*BKC) 1 TABLET PO (08:09)
[2022-03-06] MEDS: CALCIUM CARBONATE (TUMS) 500 MG (200 MG ELEMENTAL) 400 MG PO (08:09)
[2022-03-06] MEDS: FERROUS SULFATE 324 MG TABLET PO ×2 (08:09→16:24)
[2022-03-06] MEDS: ERGOCALCIFEROL 50,000 UNIT CAPSULE 50000 UNITS PO (08:09)
[2022-03-06] MEDS: PANTOPRAZOLE 40 MG TABLET PO (08:09)
[2022-03-06] MEDS: APIXABAN 5 MG TABLET PO (08:10)
[2022-03-06] MEDS: FUROSEMIDE 20 MG TABLET PO (08:10)
[2022-03-06] MEDS: polyethylene glycoL 3350 17 GM POWD.PACK PO (08:10)
[2022-03-06] MEDS: oxyCODONE HCL (*CRX) 2.5 MG TAB IR PO (08:12)
[2022-03-06] MEDS: TOLNAFTATE 1% POWDER 45 GM BTL 1 APPLIC TOPICAL (08:13)
[2022-03-06 08:28] LABS: Band Neutrophils Percent 1 % (0-6); Basophils Absolute Manual 0.18 K/mm3 (0.0-0.1); Basophils Percent Manual 4 % (0-1); Eosinophils Absolute Manual 0.42 K/mm3 (0.02-0.5); Eosinophils Percent Manual 9 % (0-4); Lymphocytes Absolute Manual 1.31 K/mm3 (1.1-4.5); Monocytes Absolute Manual 0.28 K/mm3 (0.1-0.90); Monocytes Percent Manual 6 % (3-9); Neutrophils Absolute Manual 2.49 K/mm3 (1.7-7.2); Neutrophils Percent Manual 52 % (46-73); Platelet Estimate Adequate (Adequate); Total Cells Counted 100
[2022-03-06 08:29] LABS: Hypochromasia 2+ (NORMAL); Schistocytes None Seen (NORMAL)
--- NOTE | 2022-03-06 15:06 | PM.DS ---
DS: Admitting Diagnosis Discharge Date 03/06/22 Admitting Diagnosis Anemia DS: Discharge Diagnosis Discharge Diagnosis (1) GI bleed: Code(s): K92.2 - Gastrointestinal hemorrhage, unspecified Status: Acute Assessment and Plan: Fecal occult blood test positive, continue PPI, hgb stable after 4u pRBCs, monitor hemoglobin closely, gastritis and esophagitis noted on CT scan 03/04 GI planning EGD/colonoscopy today 03/05 EGD showed esophageal web. Colonoscopy showed internal hemorrhoids, diverticulosis and no obvious source for GI blood loss. Small bowel follow through showed a moderate sized sliding hiatal hernia and no etiology for anemia. GI recommends Hematology consult if anemia is persistent after appropriate iron supplement duration. -Will change PPI from IV to PO. Will monitor H/H with plan for possible discharge tomorrow. 03/06: H/H has remained stable and patient says she feels great and is ready to return to [facility]. Gastroenterology recommended continued treatment for gastroesophageal reflux due to esophageal web noted on EGD, so PPI continued for discharge. (2) Chronic anticoagulation: Code(s): Z79.01 - alf (current) use of anticoagulants Status: Acute Assessment and Plan: Will plan to resume apixaban tomorrow morning. (3) Amputation of left lower extremity below knee: Code(s): S88.112A - Complete traumatic amputation at level between knee and ankle, left lower leg, initial encounter Status: Acute Assessment and Plan: S/p left leg amputation. (4) COPD (chronic obstructive pulmonary disease): Code(s): J44.9 - Chronic obstructive pulmonary disease, unspecified Status: Acute Assessment and Plan: Stable (5) Chronic heart failure: Code(s): I50.9 - Heart failure, unspecified Status: Acute Assessment and Plan: Had 4 units of packed red blood cells and then had some volume overload. Patient had diuresis with intravenous furosemide. Patient now on oral furosemide. Appears euvolemic. Potassium chloride 10 meq has been ordered to start after discharge. Potassium will need to be monitored at the [facility]. (6) Fecal impaction: Code(s): K56.41 - Fecal impaction Status: Acute Assessment and Plan: Resolved. (7) Abnormal urinalysis: Code(s): R82.90 - Unspecified abnormal findings in urine Status: Acute Assessment and Plan: Urine culture negative. Ceftriaxone discontinued. (8) Esophageal web determined by endoscopy: Code(s): Q39.4 - Esophageal web Status: Acute Assessment and Plan: Likely due to GERD. Will continue PPI for discharge. 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 He hemoglobin was 2.8. She denied any symptoms of anemia. Gastroenterology and Hematology-Oncology was consulted. Patient was transfused four units of packed red blood cells. Hematology-Oncology recommended intravenous iron infusion while hospitalized and the continuation of oral iron after discharge as patient had significant iron deficiency anemia. Hematology-Oncology also recommended outpatient. Gastroenterology wanted optimization of heart failure prior to completing EGD and colonoscopy. Patient had diuresis with intravenous furosemide and then restarted on her home oral furosemide. EGD on 03/03/22 showed an esophageal web that was dilated and a hiatal hernia. Colonoscopy showed internal hemorrhoids, diverticulosis and no obvious GI source of blood loss. Small bowel follow through was completed on 03/04/22 and showed no etiology for anemia. Patient did not require any maurilio
[2022-03-06] MEDS: POTASSIUM CHLORIDE 20 MEQ TABLET PO (16:24)
[2022-03-06 17:11] LABS: EDCOVIDSCREEN Negative (Negative)
== END 2022-03-06 17:25 | DRG 811 ==
LOC: ANHED 20:38 → ANHICU 23:45 → ANH2MED 02-27 18:31
PROVIDERS: Internal Medicine Gastroenterology; Student in an Organized Health Care Education/Training Program; Admitting Provider Internal Medicine; Emergency Provider Emergency Medicine; Visit Provider Family Medicine
PROC: 0DJ08ZZ Inspection of Upper Intestinal Tract, Via Natural or Artificial Opening Endoscopic (ICD-10-PCS; CPT 43235; principal; 2022-03-03 14:30)
DX: D50.9 Iron deficiency anemia, unspecified (principal); Q39.4 Esophageal web; K21.00 Gastro-esophageal reflux disease with esophagitis, without bleeding; K44.9 Diaphragmatic hernia without obstruction or gangrene; K29.70 Gastritis, unspecified, without bleeding; K57.30 Diverticulosis of large intestine without perforation or abscess without bleeding; K64.8 Other hemorrhoids; R19.5 Other fecal abnormalities; K56.41 Fecal impaction; I50.9 Heart failure, unspecified; R82.90 Unspecified abnormal findings in urine; E87.6 Hypokalemia; J44.9 Chronic obstructive pulmonary disease, unspecified; Z20.822 Contact with and (suspected) exposure to COVID-19; Z79.01 Long term (current) use of anticoagulants; Z79.82 Long term (current) use of aspirin; Z79.899 Other long term (current) drug therapy; Z86.16 Personal history of COVID-19; Z86.718 Personal history of other venous thrombosis and embolism; Z89.512 Acquired absence of left leg below knee
CPT/HCPCS: 36415; 36430; 71046; 74177; 74250; 80048; 80053; 81001; 82274; 82607; 82728; 82746; 82948; 83010; 83540; 83550; 83615; 83735; 83880; 85014; 85018; 85025; 85055; 85610; 85730; 86157; 86850; 86900; 86901; 86920; 87086; 87088; 87426; 93005; 93306; 94640; 96375; 96376; 99285; A9270; C9113; C9803; G0378; J0696; J1756; J1940; J2704; J3480; J7040; J7050; J7120; P9016; Q9967

== ENCOUNTER 2024-03-10 10:24 | Observation (INO) | payer MEDICARE, MEDICAID, SELFPAY ==
[2024-03-10] VITALS (16 sets, daily range): BP systolic 123–162; BP diastolic 45–71; PULSE 69–101; RESP 14–20; TEMP 36.2–36.8; O2SAT 93–100
[2024-03-10 13:27] LABS: Basophils Absolute Auto 0.1 K/mm3 (0.0-0.1); Basophils Percent Auto 1.1 % (0.2-1.2); Eosinophils Absolute Auto 0.1 K/mm3 (0-0.3); Eosinophils Percent Auto 1.6 % (0-4.4); Hematocrit 23.6 % (37.0-47.0); Immature Granulocyte Absolute 0.01 K/mm3 (0.00-0.031); Immature Granulocyte Percent A 0.2 % (0-0.5); Immature Platelet Fraction Pct 8.1 % (0.9-11.2); Lymphocytes Absolute Auto 2.56 K/mm3 (0.9-3.2); Lymphocytes Percent Auto 44.9 % (18.3-44.2); Mean Corpuscular HGB Conc 23.3 g/dl (32-36); Mean Corpuscular Hemoglobin 14.1 pg (26-34); Mean Corpuscular Volume 60.5 fl (80-100); Mean Platelet Volume 10.2 fl (7.4-10.4); Monocytes Absolute Auto 0.7 K/mm3 (0.1-0.6); Monocytes Percent Auto 11.4 % (2.6-8.5); Neutrophils Absolute Auto 2.3 K/mm3 (1.3-6.7); Neutrophils Percent Auto 40.8 % (45.5-73.1); Platelet Count Result 385 k/mm3 (150-375); Red Cell Distribution Width 22.7 % (11.5-14.5); White Blood Count 5.7 K/mm3 (4.5-10.0)
--- NOTE | 2024-03-10 13:32 | ED.GENADULT ---
HPI - General Adult General Chief complaint: Recheck/Abnormal Lab/Rx Stated complaint: ABNORMAL LABS, LOW H/H Time Seen by Provider: 03/10/24 12:05 History of Present Illness HPI narrative: Patient is a 78-year-old female who presents ER with reports of abnormal labs. She had outpatient blood work done yesterday routinely in reports that her hemoglobin was low but she is unsure how low. She denies having any dark black stools. She is unsure if she is on supplemental iron. Chart review shows that she takes a multivitamin and Eliquis. Denies any new dizziness or weakness. Related Data Home Medications Medication Instructions Recorded Confirmed acetaminophen 500 mg tablet 1,000 mg PO Q8H PRN Pain 02/27/22 03/10/24 apixaban 5 mg tablet (Eliquis) 5 mg PO BID 02/27/22 03/10/24 aspirin 81 mg capsule,delayed 81 mg PO DAILY 02/27/22 03/10/24 release calcium carbonate (Vasquez-Gest 400 mg PO DAILY 02/27/22 03/10/24 Antacid) furosemide 20 mg tablet 40 mg PO QNOON 02/27/22 03/10/24 multivitamin with minerals 1 tablet PO DAILY 02/27/22 03/10/24 (Multiple Vitamin-Minerals tablet) omeprazole 10 mg capsule,delayed 10 mg PO QPM 02/27/22 03/10/24 release ondansetron 4 mg disintegrating 4 mg PO Q8H PRN Nausea 02/27/22 03/10/24 tablet artifi.tears(hypromellose)(PF) 1.7 1 drp EACH EYE BID PRN Dry Eye(S) 03/10/24 03/10/24 % eye drops with applicator ergocalciferol (vitamin D2) 1,250 1,250 mcg PO WEEKLY 03/10/24 03/10/24 mcg (50,000 unit) capsule (Vitamin D2) fluticasone propionate 50 2 spray intranasal 799,199903/10/24 03/10/24 mcg/actuation nasal spray,suspension (Flonase Allergy Relief) loratadine 10 mg tablet (Claritin) 10 mg PO DAILY 03/10/24 03/10/24 metolazone 2.5 mg tablet 2.5 mg PO DAILY 09/26/24 09/26/24 tramadol 50 mg tablet 50 mg PO 0800,1200,1600,199903/10/24 03/10/24 Allergies Allergy/AdvReac Type Severity Reaction Status Date / Time No Known Allergies Allergy Verified 03/10/24 17:42 Review of Systems Review of Systems: All systems reviewed & are unremarkable except as noted in HPI and below Constitutional: Constitutional: Reports no additional constitutional complaints Cardiovascular: Cardiovascular: Reports no additional cardiovascular complaints Respiratory: Respiratory: Reports no additional respiratory complaints Gastrointestinal: Gastrointestinal: Reports no additional gastrointestinal complaints Musculoskeletal: Musculoskeletal: Reports no additional musculoskeletal complaints [facility] Past Medical History Medical History (Updated 03/10/24 @ 20:40 by Julian Ramos MD) Abnormal CT scan, stomach Amputation of left lower extremity below knee Below knee amputation Chronic anticoagulation COPD (chronic obstructive pulmonary disease) Family History Family History (Updated 03/10/24 @ 17:56 by Nancy Up RN) Father Acute myocardial infarction Social History Social History Smoking status: Never smoker Alcohol intake: never Substance use: never Do You Feel Safe in your Home?: Yes Lack of Transportation: No Lack of Food: Never True Current Housing: I Have Housing Concerned About Future Housing: No Difficulty Paying Gas/Electric Bills: No Difficulty Paying for Meds: No Currently Unemployed: No Education: Trade/Vocational Certificate Difficulty w/ Childcare or Family Care: No Spiritual care concerns: No Exam Narrative: GENERAL: Well-appearing, well-nourished, and in no acute distress. HEAD: Normocephalic, atraumatic. ENT: Mucous membranes moist. CHEST: Clear to auscultation. No respiratory distress. HEART: Regular rate and rhythm. Normal peripheral pulses. ABDOMEN: Soft, nontender, nondistended. Hemoccult-negative stool. EXTREMITIES: Normal range of motion. No edema. Left BKA. SKIN: Warm, dry, no rash. NEURO: Alert and oriented x3. PSYCH: Normal mood and affect.
[2024-03-10 13:37] LABS: Alanine Aminotransferase 16 U/L (6-35); Albumin Level 3.5 g/dL (3.5-5.1); Alkaline Phosphatase 130 U/L (38-126); Anion Gap 8 mmol/L (4-12); Aspartate Amino Transferase 28 U/L (14-36); Bilirubin,Total 0.6 mg/dL (0.2-1.3); Blood Urea Nitrogen 13 mg/dL (7-17); Calcium 8.4 mg/dL (8.4-10.2); Carbon Dioxide 29 mmol/L (22-30); Chloride 95 mmol/L (98-107); Estimated CRCL calculation 63 ml/min; Estimated Glomerular Filt Rate > 60; Glucose 99 mg/dL (65-110); Potassium 3.1 mmol/L (3.4-5.0); Sodium 132 mmol/L (137-145)
[2024-03-10 13:50] LABS: Hemoglobin 5.5 g/dL (12.0-15.0)
[2024-03-10 13:54] LABS: Hypochromasia 1+; Platelet Estimate Adequate (Adequate)
[2024-03-10 13:55] LABS: Microcytosis 2+ (NORMAL); Schistocytes None Seen
[2024-03-10 13:56] LABS: INR 1.3; Prothrombin Time 16.7 Seconds (11.1-14.7)
[2024-03-10 13:57] LABS: Partial Thromboplastin Time 33.4 Seconds (22.3-36.8)
[2024-03-10 14:39] LABS: Iron 17 ug/dL (37-170); Lactate Dehydrogenase 154 U/L (120-246)
[2024-03-10 14:46] LABS: Transferrin 261 mg/dL (206-381)
[2024-03-10 14:53] LABS: Percent Iron Saturation 5 % (20-50)
[2024-03-10 15:21] LABS: Ferritin 3.58 ng/mL (11.1-264)
[2024-03-10 15:46] LABS: Folic Acid 7.1 ng/mL (2.76->20)
--- NOTE | 2024-03-10 17:50 | ADMGEN ---
This patient, Shruthi Norris, was admitted to Medical Room 340-01. Patient/family oriented to hospital policies and general routines including ID bracelet, bed and alarms, visiting hours, pain management, procedures, bathroom and other care routines, personal items, smoking policy, room service/diet, and visiting hours. Information on how to activate the Rapid Response Team has been discussed. Patient/Family are encouraged to report perceived risks to care and to ask questions if they do not understand what they are told or what they should do.
--- NOTE | 2024-03-10 21:18 | PM.IMHP ---
H&P: HPI History of Present Illness Date/Time: 03/10/24 21:18 Chief Complaint: Abnormal Lab Narrative: 78 y/o F presents here with abnormal lab with PMH of COPD, BKA on L secondary to DVT/circulatory issues secondary to COVID, CKD, anemia that required blood transfusions, and hypothyroidism. The patient presents here via EMS from [facility] [place] for further evaluation of low hemoglobin. The patient is unsure how low her hemoglobin was on the routine outpatient lab work that was performed yesterday. The patient is currently on anticoagulation, apixaban 5 mg b.i.d. and she is unsure why she is on it chronically. She currently denies shortness of breath, fatigue, dizziness, weakness, dark tarry stools, hematochezia, or hematemesis. Has previously been diagnosed with iron deficiency anemia and per paperwork from [facility], patient is on a multivitamin but not on daily iron. Patient reports she currently feels like her normal self and has no complaints. Initial VS at presentation: 98.2? F, HR 90, R 16, 155/45, and 100% on RA ED workup showed: No leukocytosis, hemoglobin 5.5 (baseline 8.6-9.8), low MCV/MCHC, INR 1.3, sodium 132, potassium 3.1, creatinine 0.6 and GFR >60. Guaiac negative. Review of Systems Review of Systems: All systems reviewed & are unremarkable except as noted in HPI and below PMFSH Past Medical History Medical History (Updated 03/10/24 @ 22:48 by Celestina Rowe APRN) Below knee amputation CHF (congestive heart failure) Grade 1 diastolic dysfunction, EF 55-60% in 2021 Chronic anticoagulation COPD (chronic obstructive pulmonary disease) DVT (deep venous thrombosis) Esophageal web determined by endoscopy REED (iron deficiency anemia) Surgical History Surgical History (Updated 03/10/24 @ 23:39 by Celestina Rowe APRN) Amputation of left lower extremity below knee secondary to DVT/necrosis due to COVID Family History Family History Father Acute myocardial infarction Social History Social History Smoking status: Never smoker Alcohol intake: never Substance use: never Do You Feel Safe in your Home?: Yes Lack of Transportation: No Lack of Food: Never True Current Housing: I Have Housing Concerned About Future Housing: No Difficulty Paying Gas/Electric Bills: No Difficulty Paying for Meds: No Currently Unemployed: No Education: Trade/Vocational Certificate Difficulty w/ Childcare or Family Care: No Spiritual care concerns: No Meds Home Medications and Allergies Home Medications Medication Instructions Recorded Confirmed Type acetaminophen 500 mg tablet 1,000 mg PO Q8H PRN Pain 02/27/22 03/10/24 History apixaban 5 mg tablet (Eliquis) 5 mg PO BID 02/27/22 03/10/24 History aspirin 81 mg capsule,delayed 81 mg PO DAILY 02/27/22 03/10/24 History release calcium carbonate (Vasquez-Gest 400 mg PO DAILY 02/27/22 03/10/24 History Antacid) furosemide 20 mg tablet 40 mg PO QNOON 02/27/22 03/10/24 History multivitamin with minerals 1 tablet PO DAILY 02/27/22 03/10/24 History (Multiple Vitamin-Minerals tablet) omeprazole 10 mg capsule,delayed 10 mg PO QPM 02/27/22 03/10/24 History release ondansetron 4 mg disintegrating 4 mg PO Q8H PRN Nausea 02/27/22 03/10/24 History tablet artifi.tears(hypromellose)(PF) 1.7 1 drp EACH EYE BID PRN Dry Eye(S) 03/10/24 03/10/24 History % eye drops with applicator ergocalciferol (vitamin D2) 1,250 1,250 mcg PO WEEKLY 03/10/24 03/10/24 History mcg (50,000 unit) capsule (Vitamin D2) fluticasone propionate 50 2 spray intranasal 799,199903/10/24 03/10/24 History mcg/actuation nasal spray,suspension (Flonase Allergy Relief) loratadine 10 mg tablet (Claritin) 10 mg PO DAILY 03/10/24 03/10/24 History metolazone 2.5 mg tablet 2.5 mg PO DAILY 03/10/24 03/10/24 History tramadol 50 mg tablet 5
[2024-03-10] MEDS: POTASSIUM CHLORIDE 20 MEQ ER TABLET 40 MEQ PO (22:35)
[2024-03-10] MEDS: ACETAMINOPHEN 500 MG TABLET 1000 MG PO (22:35)
[2024-03-10 22:50] LABS: Hematocrit 34.9 % (37.0-47.0); Hemoglobin 9.4 g/dL (12.0-15.0)
[2024-03-11] VITALS (9 sets, daily range): BP systolic 132–140; BP diastolic 72–84; PULSE 74–97; RESP 16–18; TEMP 36.4–36.9; O2SAT 96–98
[2024-03-11] MEDS: traMADol HCL (*CRX) 50 MG TABLET PO ×5 (00:02→20:02)
[2024-03-11 06:05] LABS: Basophils Absolute Auto 0.1 K/mm3 (0.0-0.1); Basophils Percent Auto 1.4 % (0.2-1.2); Eosinophils Absolute Auto 0.1 K/mm3 (0-0.3); Eosinophils Percent Auto 2.5 % (0-4.4); Hematocrit 33.5 % (37.0-47.0); Hemoglobin 8.8 g/dL (12.0-15.0); Immature Granulocyte Absolute 0.01 K/mm3 (0.00-0.031); Immature Granulocyte Percent A 0.2 % (0-0.5); Lymphocytes Absolute Auto 2.82 K/mm3 (0.9-3.2); Lymphocytes Percent Auto 49.7 % (18.3-44.2); Mean Corpuscular HGB Conc 26.3 g/dl (32-36); Mean Corpuscular Hemoglobin 17.6 pg (26-34); Monocytes Absolute Auto 0.8 K/mm3 (0.1-0.6); Monocytes Percent Auto 13.4 % (2.6-8.5); Neutrophils Absolute Auto 1.9 K/mm3 (1.3-6.7); Neutrophils Percent Auto 32.8 % (45.5-73.1); Platelet Count Result 370 k/mm3 (150-375); Red Cell Distribution Width 28.4 % (11.5-14.5); White Blood Count 5.7 K/mm3 (4.5-10.0)
[2024-03-11 06:13] LABS: Alanine Aminotransferase 16 U/L (6-35); Albumin Level 3.3 g/dL (3.5-5.1); Alkaline Phosphatase 119 U/L (38-126); Anion Gap 9 mmol/L (4-12); Aspartate Amino Transferase 30 U/L (14-36); Bilirubin,Total 0.9 mg/dL (0.2-1.3); Blood Urea Nitrogen 10 mg/dL (7-17); Calcium 8.5 mg/dL (8.4-10.2); Carbon Dioxide 26 mmol/L (22-30); Chloride 101 mmol/L (98-107); Estimated CRCL calculation 75 ml/min; Estimated Glomerular Filt Rate > 60; Glucose 96 mg/dL (65-110); Potassium 3.7 mmol/L (3.4-5.0); Sodium 136 mmol/L (137-145)
[2024-03-11 06:56] LABS: Anisocytosis 2+; Hypochromasia 1+; Platelet Estimate Adequate (Adequate); Polychromasia 1+
[2024-03-11 06:57] LABS: Microcytosis 2+ (NORMAL); Schistocytes None Seen
[2024-03-11] MEDS: THERAPEUTIC MULTIVITAMINS/MINERALS TAB (*BKC) 1 TABLET PO (09:52)
[2024-03-11] MEDS: CALCIUM CARBONATE (TUMS) 500 MG (200 MG ELEMENTAL) 400 MG PO (09:52)
[2024-03-11] MEDS: LORATADINE 10 MG TABLET PO (09:53)
[2024-03-11] MEDS: ASPIRIN 81 MG ENTERIC TABLET PO (09:53)
[2024-03-11] MEDS: metOLazone 2.5 MG TABLET PO (09:53)
[2024-03-11] MEDS: APIXABAN 5 MG TABLET PO ×2 (09:53→20:01)
[2024-03-11] MEDS: DOCUSATE SODIUM 100 MG CAPSULE PO (09:53)
[2024-03-11] MEDS: FLUTICASONE PROPIONATE 0.05% NA SPR 16 GM BTL (*BKC) 2 SPRAY NASAL ×2 (10:03→20:02)
[2024-03-11] MEDS: POLYSACCHARIDE IRON COMPLEX 150 MG CAPSULE PO ×2 (10:04→17:27)
[2024-03-11] MEDS: FUROSEMIDE 40 MG TABLET PO (12:14)
--- NOTE | 2024-03-11 15:09 | PM.IMPN ---
Progress Note: A&P Assessment and Plan (1) Anemia: Qualifiers: Anemia type: iron deficiency Iron deficiency anemia type: unspecified iron deficiency Qualified Code(s): D50.9 - Iron deficiency anemia, unspecified Code(s): D64.9 - Anemia, unspecified Status: Acute Assessment and Plan: - history of iron deficiency anemia and GI bleed, guaiac negative in ED and no reports of dark tarry stools - hemoglobin 5.5 - MCV 60.5 and MCHC 23.3 - iron 17, TIBC 355, saturation 5%, transferrin 261, and ferritin 3.58. B12 and folate within normal limits. - add TSH - start iron supplement b.i.d., add docusate to avoid constipation - transfused 2 units. repeat post transfusion Hgb 5.5 -> 9.4. Hemoglobin this morning 8.8. - transfuse if less than 7 - monitor labs (2) Hypokalemia: Code(s): E87.6 - Hypokalemia Status: Acute Assessment and Plan: - Potassium 3.1. Patient was given potassium chloride 40 meq PO with follow up potassium increased to 3.7. - monitor labs Plan Diet: Heart healthy GI Prophylaxis: Not currently indicated DVT Prophylaxis: Continue Eliquis Lines: Peripheral Code Status: Full code Subjective Date/time seen: 03/11/24 15:09 Interval history: Patient reports feeling better today. Patient denies chest pain, palpitations, headache, dizziness, nausea, or vomiting. Patient reports having everything she needs at her facility that she lives at. Reports a good appetite and drinking well. Review of Systems Review of Systems: All systems reviewed & are unremarkable except as noted in HPI and below Exam Const: General: comfortable and no acute distress Eyes: Sclera: sclerae normal Resp: Effort & Inspection: normal respiratory effort Auscultation: clear to auscultation bilaterally Cardio: Rate: regular rate Rhythm: regular rhythm GI: Inspection: non-distended GI Palp: Yes Soft to palpation Auscultation: normal bowel sounds Skin: General skin exam: no rashes or lesions noted Wounds: no wounds Neuro: Speech: normal speech Sensory Exam: normal sensation Other: A&Ox4. Extrem: Other: Left BKA Psych: Mental Status: mental status grossly normal Affect: normal affect Objective Data Vital Signs Vital Signs: Vital Signs - 24 hr 03/10/24 15:44 03/10/24 16:02 03/10/24 16:03 Temperature 97.6 F 97.2 F L Pulse Rate 93 93 Respiratory Rate 14 19 18 Blood Pressure 162/56 H 150/63 H Pulse Oximetry 96 96 98 Oxygen Delivery 03/10/24 15:30 03/10/24 17:02 03/10/24 17:46 Temperature 98.3 F 98.2 F Pulse Rate 101 H 96 96 Respiratory Rate 17 18 18 Blood Pressure 162/56 H 140/50 L 139/65 Pulse Oximetry 96 98 95 Oxygen Delivery 03/10/24 18:58 03/10/24 19:14 03/10/24 20:15 Temperature 97.7 F 97.7 F 98.2 F Pulse Rate 82 74 99 Respiratory Rate 16 16 18 Blood Pressure 130/60 123/48 L 130/57 L Pulse Oximetry 100 95 100 Oxygen Delivery 03/10/24 20:51 03/10/24 20:00 03/11/24 00:00 Temperature 97.8 F Pulse Rate 69 96 97 Respiratory Rate 16 Blood Pressure 132/65 Pulse Oximetry 97 Oxygen Delivery 03/11/24 04:00 03/11/24 06:46 03/11/24 08:19 Temperature 97.6 F Pulse Rate 77 74 Respiratory Rate 16 Blood Pressure 140/84 Pulse Oximetry 98 96 Oxygen Delivery Room Air 03/11/24 14:00 Temperature 98.0 F Pulse Rate 82 Respiratory Rate 16 Blood Pressure 136/80 Pulse Oximetry 97 Oxygen Delivery Intake/Output Intake/Output: Intake & Output 03/08/24 03/09/24 03/10/24 03/11/24 23:59 23:59 23:59 23:59 Intake Total 700 900 Balance 700 900 Meds/Results Medications: Active Medications Generic Name Dose Route Start Last Admin Trade Name Freq PRN Reason Stop Dose Admin Acetaminophen 1,000 mg 03/10/24 21:25 03/10/24 22:35 Acetaminophen 500 Mg Tablet PO 1,000 mg Q8H PRN Administration Pain Apixaban 5 mg 03/11/24 09:00 03/11/24 09:53 Apixaban 5 Mg T
[2024-03-11] MEDS: PANTOPRAZOLE SOD SESQUIHYDRATE 20 MG TAB PO (17:28)
[2024-03-12] VITALS: PULSE 77
[2024-03-12 04:00] VITALS: PULSE 82
[2024-03-12 05:32] VITALS: BP 144/58; PULSE 85; RESP 16; TEMP 36.4; O2SAT 95
[2024-03-12] MEDS: FLUTICASONE PROPIONATE 0.05% NA SPR 16 GM BTL (*BKC) 2 SPRAY NASAL (08:25)
[2024-03-12] MEDS: DOCUSATE SODIUM 100 MG CAPSULE PO (08:26)
[2024-03-12] MEDS: traMADol HCL (*CRX) 50 MG TABLET PO ×3 (08:26→16:26)
[2024-03-12] MEDS: POLYSACCHARIDE IRON COMPLEX 150 MG CAPSULE PO ×2 (08:26→16:26)
[2024-03-12] MEDS: THERAPEUTIC MULTIVITAMINS/MINERALS TAB (*BKC) 1 TABLET PO (08:26)
[2024-03-12] MEDS: LORATADINE 10 MG TABLET PO (08:26)
[2024-03-12] MEDS: CALCIUM CARBONATE (TUMS) 500 MG (200 MG ELEMENTAL) 400 MG PO (08:26)
[2024-03-12] MEDS: APIXABAN 5 MG TABLET PO (08:26)
[2024-03-12] MEDS: metOLazone 2.5 MG TABLET PO (08:26)
[2024-03-12] MEDS: ASPIRIN 81 MG ENTERIC TABLET PO (08:26)
[2024-03-12 08:52] LABS: Basophils Absolute Auto 0.1 K/mm3 (0.0-0.1); Basophils Percent Auto 1.5 % (0.2-1.2); Eosinophils Absolute Auto 0.2 K/mm3 (0-0.3); Eosinophils Percent Auto 3.4 % (0-4.4); Hematocrit 35.1 % (37.0-47.0); Hemoglobin 9.4 g/dL (12.0-15.0); Immature Granulocyte Absolute 0.01 K/mm3 (0.00-0.031); Immature Granulocyte Percent A 0.2 % (0-0.5); Immature Platelet Fraction Pct 8.9 % (0.9-11.2); Lymphocytes Absolute Auto 2.95 K/mm3 (0.9-3.2); Lymphocytes Percent Auto 47.7 % (18.3-44.2); Mean Corpuscular HGB Conc 26.8 g/dl (32-36); Mean Corpuscular Hemoglobin 17.9 pg (26-34); Monocytes Absolute Auto 0.7 K/mm3 (0.1-0.6); Neutrophils Absolute Auto 2.2 K/mm3 (1.3-6.7); Neutrophils Percent Auto 36.2 % (45.5-73.1); Platelet Count Result 386 k/mm3 (150-375); Red Blood Count 5.24 M/mm3 (4.2-5.4); Red Cell Distribution Width 29.2 % (11.5-14.5); White Blood Count 6.2 K/mm3 (4.5-10.0)
[2024-03-12 09:10] LABS: Alanine Aminotransferase 16 U/L (6-35); Albumin Level 3.7 g/dL (3.5-5.1); Alkaline Phosphatase 113 U/L (38-126); Anion Gap 9 mmol/L (4-12); Aspartate Amino Transferase 30 U/L (14-36); Bilirubin,Total 0.7 mg/dL (0.2-1.3); Blood Urea Nitrogen 11 mg/dL (7-17); Calcium 8.8 mg/dL (8.4-10.2); Carbon Dioxide 31 mmol/L (22-30); Chloride 95 mmol/L (98-107); Estimated CRCL calculation 55 ml/min; Estimated Glomerular Filt Rate > 60; Glucose 142 mg/dL (65-110); Potassium 3.3 mmol/L (3.4-5.0); Sodium 135 mmol/L (137-145)
[2024-03-12 09:31] LABS: Anisocytosis 2+; Hypochromasia 2+; Platelet Estimate Adequate (Adequate)
[2024-03-12 09:32] LABS: Polychromasia 1+; Schistocytes None Seen
--- NOTE | 2024-03-12 11:03 | PM.DS ---
DS: Admitting Diagnosis Discharge Date 03/12/2024 Admitting Diagnosis Abnormal lab DS: Discharge Diagnosis Discharge Diagnosis (1) Anemia: Qualifiers: Anemia type: iron deficiency Iron deficiency anemia type: unspecified iron deficiency Qualified Code(s): D50.9 - Iron deficiency anemia, unspecified Code(s): D64.9 - Anemia, unspecified Status: Acute DS: Summary Hospital Course Hospital Course: history of iron deficiency anemia and GI bleed, guaiac negative in ED and no reports of dark tarry stools - hemoglobin 5.5 - MCV 60.5 and MCHC 23.3 - iron 17, TIBC 355, saturation 5%, transferrin 261, and ferritin 3.58. B12 and folate within normal limits. - add TSH - start iron supplement b.i.d., add docusate to avoid constipation - transfused 2 units. repeat post transfusion Hgb 5.5 -> 9.4. Hemoglobin this morning 9.4 this morning. Status at Discharge Functional status at discharge: wheelchair bound Overall status at discharge: patient is progressing back to baseline Time Spent with Patient Time attestation: Total time spent providing and/or coordinating discharge services: Time spent: Greater than 30 minutes Exam Const: General: comfortable and no acute distress Eyes: Sclera: sclerae normal Resp: Effort & Inspection: normal respiratory effort Auscultation: clear to auscultation bilaterally Cardio: Rate: regular rate Rhythm: regular rhythm GI: GI Palp: Yes Soft to palpation Auscultation: normal bowel sounds Other: Last BM 03/11/24 Skin: General skin exam: no rashes or lesions noted Neuro: Sensory Exam: normal sensation Other: A&O x4 Extrem: Other: Left BKA Psych: Mental Status: mental status grossly normal Affect: normal affect DS: Data Data Completed and Pending Labs on day of discharge: Labs from last 24 hours 03/12/24 08:36 WBC 6.2 RBC 5.24 Hgb 9.4 L Hct 35.1 L MCV 67.0 L MCH 17.9 L MCHC 26.8 L RDW 29.2 H Plt Count 386 H MPV TNP Immature Gran % (Auto) 0.2 Neut % (Auto) 36.2 L Lymph % (Auto) 47.7 H [place] % (Auto) 11.0 H Eos % (Auto) 3.4 Baso % (Auto) 1.5 H Lymph # (Auto) 2.95 [place] # (Auto) 0.7 H Eos # (Auto) 0.2 Baso # (Auto) 0.1 Abs Immat Gran (auto) 0.01 Absolute Neuts (auto) 2.2 Absolute Nucleated RBC 0.000 Nucleated RBC % 0.0 Platelet Estimate Adequate % Immature Plt Fraction 8.9 Polychromasia 1+ Hypochromasia 2+ Anisocytosis 2+ Schistocytes None seen Sodium 135 L Potassium 3.3 L Chloride 95 L Carbon Dioxide 31 H Anion Gap 9 BUN 11 Creatinine 0.70 Estim Creat Clear Calc 55 Estimated GFR > 60 Glucose 142 H Calcium 8.8 Total Bilirubin 0.7 AST 30 ALT 16 Alkaline Phosphatase 113 Total Protein 7.0 Albumin 3.7 Discharge Plan Discharge Attending physician on discharge: Rigo Del Valle Discharging Clinician: Aida Munroe Anticipated Discharge Date/Time: 03/12/24 13:00 Patient Disposition: SNF Activity: october shower Diet: heart healthy Discharge Instructions: -CBC in 1 week. -Follow up with facility provider. Patient Instructions: Anemia (DC) Stand Alone Forms: General Discharge Information, Mcfp Discharge Discharge Medications: New polysaccharide iron complex 150 mg iron Capsule 150 mg PO BIDWM Qty: 60 0RF Rx Instructions: Take twice a day as long as hemoglobin in less than 10. docusate sodium 100 mg Capsule 100 mg PO Q12HR Qty: 60 0RF Continued acetaminophen 500 mg Tablet 1,000 mg PO Q8H PRN (Reason: Pain) aspirin 81 mg Capsule,Delayed Release(Dr/Ec) 81 mg PO DAILY calcium carbonate [Vasquez-Gest Antacid] 200 mg calcium (500 mg) Tablet,Chewable 400 mg PO DAILY Eliquis 5 mg tablet 5 mg PO BID furosemide 20 mg tablet 40 mg PO QNOON Multiple Vitamin-Minerals Tablet 1 tablet PO DAILY omeprazole 10 mg capsule,delayed release(DR/EC) 10 mg PO QPM ondansetron 4 mg t
[2024-03-12] MEDS: FUROSEMIDE 40 MG TABLET PO (12:07)
[2024-03-12 14:00] VITALS: BP 150/81; PULSE 94; RESP 16; TEMP 36.4; O2SAT 94
[2024-03-12 14:50] LABS: SARS-CoV-2 RNA PCR Negative (Negative)
== END 2024-03-12 17:30 ==
LOC: ANHED 13:15 → ANH3MED 15:24
PROVIDERS: Nurse Practitioner Family; Student in an Organized Health Care Education/Training Program; Admitting Provider Family Medicine; Emergency Provider Emergency Medicine; Visit Provider Internal Medicine
DX: D50.9 Iron deficiency anemia, unspecified (principal); E87.6 Hypokalemia; E03.9 Hypothyroidism, unspecified; N18.9 Chronic kidney disease, unspecified; I50.9 Heart failure, unspecified; J44.9 Chronic obstructive pulmonary disease, unspecified; Z79.01 Long term (current) use of anticoagulants; Z79.82 Long term (current) use of aspirin; Z89.512 Acquired absence of left leg below knee; Z86.16 Personal history of COVID-19; Z86.718 Personal history of other venous thrombosis and embolism; Z99.3 Dependence on wheelchair; Z11.52 Encounter for screening for COVID-19
CPT/HCPCS: 36415; 36430; 80053; 82607; 82728; 82746; 83540; 83550; 83615; 84443; 84466; 85014; 85018; 85025; 85055; 85610; 85730; 86850; 86900; 86901; 86923; 87635; 99285; A9270; G0378; P9016